=== PATIENT | female | born 1940 | race Caucasian/White ===

== ENCOUNTER → 2017-03-25 | Outpatient (REF) | payer MEDICARE | LOC: M LAB REF 12:30 | PROVIDERS: ATTEND Nurse Practitioner Adult Health | DX: R32 Unspecified urinary incontinence (principal) ==

== ENCOUNTER → 2017-04-21 | Outpatient (REF) | payer MEDICARE | LOC: M LAB REF 16:25 | PROVIDERS: ATTEND Nurse Practitioner Adult Health | DX: R35.0 Frequency of micturition (principal) ==

== ENCOUNTER → 2017-06-05 | Outpatient (REF) | payer MEDICARE | LOC: M LAB REF 16:08 | PROVIDERS: ATTEND Nurse Practitioner Adult Health | DX: M25.569 Pain in unspecified knee (principal) ==

== ENCOUNTER → 2020-01-30 | Outpatient (CLI) | payer MEDICARE ==
[2020-02-02 00:10] LABS: Lyme Disease IgG/IgM Antibodie <0.91 ISR (0.00-0.90); Lyme Disease IgM Ab Quantitati <0.80 index (0.00-0.79)
== END ==
LOC: M WUC 15:14
PROVIDERS: ATTEND Nurse Practitioner
DX: S40.861A Insect bite (nonvenomous) of right upper arm, initial encounter (principal); W57.XXXA Bitten or stung by nonvenomous insect and other nonvenomous arthropods, initial encounter; Y92.89 Other specified places as the place of occurrence of the external cause

== ENCOUNTER 2020-10-15 23:21 | Observation (INO) | payer MEDICARE ==
[~2020-10-15] VITALS: Ht 149.9 cm; Wt 57.7 kg
[2020-10-15] MEDS ORDERED: AMLO1TAB24 (23:49)
[2020-10-15] MEDS ORDERED: SERT25TA21 (23:49)
[2020-10-15] MEDS ORDERED: BIMA01SOL (23:49)
--- NOTE | 2020-10-16 00:10 | REPVR ---
PROCEDURE INFORMATION: Exam: CT Head Without Contrast Exam date and time: 10/15/2020 11:33 PM Age: 80 years old Clinical indication: CVA TECHNIQUE: Imaging protocol: Computed tomography of the head without contrast. Radiation optimization: All CT scans at this facility use at least one of these dose optimization techniques: automated exposure control; mA and/or kV adjustment per patient size (includes targeted exams where dose is matched to clinical indication); or iterative reconstruction. COMPARISON: No relevant prior studies available. FINDINGS: Brain: There is no CT evidence for an acute large vessel territorial infarct. No acute intracranial hemorrhage is seen. There are non-specific foci of low attenuation in the periventricular and subcortical white matter, which are likely the sequela of chronic small vessel ischemic injury. There are chronic lacunar infarcts involving the head of the right caudate nucleus and body of the left caudate nucleus. No mass effect, midline shift, or herniation is noted. Cerebral ventricles: The ventricles are mildly dilated in proportion to the sulci, which is compatible with mild generalized cerebral volume loss. Incidental note is made of a normal variant cavum septum pellucidum and cavum vergae, which is persistence of the embryological fluid-filled space between the leaflets of the septum pellucidum. Bones/joints: The skull is intact. No suspicious osteolytic or osteoblastic lesion. Paranasal sinuses: The imaged portions of the sinuses are well-aerated. No air-fluid levels are noted in the sinuses. Mastoid air cells: Clear. Vasculature: There are atherosclerotic calcifications of the intracranial portion of the left vertebral artery and both internal carotid arteries. Soft tissues: Unremarkable. No soft tissue fluid collection. IMPRESSION: 1. No acute intracranial abnormality. 2. Chronic lacunar infarcts involving the head of the right caudate nucleus and body of the left caudate nucleus. 3. Mild cerebral atrophy and chronic microangiopathic changes. Electronically signed by: Ambrosio Dhillon On 10/16/2020 00:10:16 AM
[2020-10-16] MEDS ORDERED: BIMA01SOL OU (00:20)
[2020-10-16] MEDS ORDERED: RA B1TAB7 PO (00:20)
[2020-10-16] MEDS ORDERED: VITA200010 PO (00:20)
[2020-10-16] MEDS ORDERED: AMLO1TAB24 PO (00:20)
[2020-10-16] MEDS ORDERED: CALC1TAB30 PO (00:20)
[2020-10-16 00:24] LABS: BASO # 0.1 10^3/uL (0.0-0.2); BASO % 0.9 % (0.0-1.0); EOS # 0.6 10^3/uL (0.0-0.5); EOS % 6.6 % (0.0-3.0); HEMATOCRIT 35.6 % (36.0-47.0); HEMOGLOBIN 11.1 g/dl (12.0-15.5); LYMPH # 2.4 10^3/uL (1.5-5.0); LYMPH % 28.3 % (24.0-44.0); MEAN CORPUSCULAR HEMOGLOBIN 29.2 pg (27.0-33.0); MEAN CORPUSCULAR HGB CONC 31.2 g/dl (32.0-36.5); MEAN CORPUSCULAR VOLUME 93.7 fl (80.0-96.0); MONO # 0.7 10^3/uL (0.0-0.8); MONO % 8.6 % (0.0-5.0); NEUTROPHILS # 4.7 10^3/uL (1.5-8.5); NEUTROPHILS % 55.4 % (36.0-66.0); PLATELET COUNT, AUTOMATED 334 10^3/uL (150-450); WHITE BLOOD COUNT 8.5 10^3/uL (4.0-10.0)
[2020-10-16 00:33] LABS: INR 0.92; PROTHROMBIN TIME 12.6 SECONDS (12.5-14.3)
[2020-10-16 00:34] LABS: PARTIAL THROMBOPLASTIN TIME 29.2 SECONDS (24.2-38.5)
[2020-10-16 00:46] LABS: BLOOD UREA NITROGEN 26 MG/DL (7-18); CALCIUM LEVEL 9.3 MG/DL (8.8-10.2); CARBON DIOXIDE LEVEL 29 MEQ/L (21-32); CHLORIDE LEVEL 108 MEQ/L (98-107); CK-MB VALUE MASS 2.3 NG/ML (<3.6); CPK CREATINE PHOSPHOKINASE 61 U/L (26-192); GLOMERULAR FILTRATION RATE 45.9 (>32); GLUCOSE, FASTING 130 MG/DL (70-100); MB/CK RELATIVE INDEX 3.77 (< OR =4); POTASSIUM SERUM 4.2 MEQ/L (3.5-5.1); SODIUM LEVEL 141 MEQ/L (136-145); TROPONIN I < 0.02 NG/ML (< 0.10)
[2020-10-16 01:04] LABS: RSV AMPLIFICATION NEGATIVE (NEGATIVE)
--- NOTE | 2020-10-16 01:38 | REPVR ---
PROCEDURE INFORMATION: Exam: XR Chest, 1 View Exam date and time: 10/15/2020 11:50 PM Age: 80 years old Clinical indication: CVA TECHNIQUE: Imaging protocol: XR of the chest Views: 1 view. COMPARISON: No relevant prior studies available. FINDINGS: Lungs: Unremarkable. No consolidation. No pulmonary edema. Pleural space: Unremarkable. No pleural effusion or pneumothorax is identified. Heart/Mediastinum: Unremarkable. No cardiomegaly. Vasculature: There are atherosclerotic calcifications of the aortic arch. Bones/joints: There are endplate spurs in the thoracic spine. There is a mild levoscoliosis of the lumbar spine. IMPRESSION: No acute findings. Electronically signed by: Ambrosio Dhillon On 10/16/2020 01:38:49 AM
[2020-10-16] MEDS ORDERED: LABETALOL 100MG/20ML VIAL IV ONE (04:00)
--- NOTE | 2020-10-16 04:21 | HPEPDOC ---
General Date of Admission Date of Service: Oct 16, 2020 Primary Care Physician: RIK CARLOS DO Attending Physician: Harry Jackson MD Chief Complaint The patient is a 80-year-old female admitted with a reason for visit of "my speech was very slurred." Source: Patient, RN/MD Exam Limitations: No limitations History of Present Illness Ms. Armando was at home with her family having supper when suddenly she had difficulty speaking and couldn't lift her left arm. The symptoms lasted only 2 or 3 minutes and initially the patient and her family were sure to do. They waited a little while to bring her in for evaluation, but eventually decided evaluation in the hospital even though her symptoms had resolved. For now she is under a lot of stress right now. Her two evenings ago while under the care of Hospice. Home Medications Scheduled Amlodipine Besylate (Amlodipine Besylate) 5 Mg Tablet, 5 MG PO DAILY, (Reported) Bimatoprost (Lumigan) 0.01% 2.5ML Drops, 1 DROP OU QHS, (Reported) Calcium Carbonate/Vitamin D3 (Calcium 500-Vit D3 200 Caplet) 1 Each Tablet, 1 TAB PO DAILY, (Reported) Cholecalciferol (Vitamin D3) (Vitamin D3) 50 Mcg Tablet, 50 MCG PO DAILY, (Reported) Vitamin B Complex (B Complex) 1 Each Tablet, 1 TAB PO DAILY, (Reported) Allergies Coded Allergies: hydrochlorothiazide (Verified Allergy, Intermediate, 10/15/20) RASH shellfish derived (Verified Allergy, Intermediate, 10/15/20) RASH Uncoded Allergies: BONE FISH (Allergy, Intermediate, 10/15/20) RASH Past Medical History Medical History Hypertension Hyperlipidemia Osteoarthritis Macular degeneration of the right eye Surgical History Left total hip arthroplasty Right total knee arthroplasty Family History Her father at the age of 78 of prostate cancer Her mother at the age of 90 of Alzheimer's disease and osteoporosis Social History * Smoker: former Smoker (quit smoking in the 1970s) Alcohol: other (she reports she drinks 2-3 beers each night) Drugs: denies (but she does have CBD oil in her coffee most every day) She lives in a separate house on her son's property A-FIB/CHADSVASC A-FIB History Current/History of A-Fib/PAF?: No Current PO Anticoag Therapy: No Review of Systems Constitutional: Denies: Chills, Fever Eyes: Denies: Vision change ENT: Denies: Head Aches, Dysphagia Pulmonary: Denies: Dyspnea, Cough Cardiovascular: Denies: Chest Pain, Palpitations, Lt Headedness Gastrointestinal: Denies: Nausea, Vomiting, Abdominal Pain Genitourinary: Denies: Dysuria, Hematuria Hematologic: Denies: Bruising, Bleeding Excessively Endocrine: Denies: Heat Intolerance, Cold Intolerance Neurological: Reports: Weakness, Change in speech; Denies: Numbness, Confusion, Seizures Psych: Reports: Mood Normal, Depression; Denies: Memory Issues Physical Examination General Exam: Positive: Alert, Cooperative, No Acute Distress Eye Exam: Positive: PERRLA, Conjunctiva & lids normal; Negative: Sclera icteric ENT Exam: Positive: Atraumatic, Mucous membr. moist/pink, Pharynx Normal, Tongue Midline Neck Exam: Positive: Supple; Negative: Lymphadenopathy Chest Exam: Positive: Clear to auscultation, Normal air movement Heart Exam: Positive: Rate Normal, Regular Rhythm, Normal S1, Normal S2, Murmurs (there was a mid systolic murmur noted at the left lower sternal border); Negative: Rubs Telemetry: Positive: No significant arrhythmia Abdomen Exam: Positive: Normal bowel sounds, Soft; Negative: Tenderness, Hepatospenomegaly Extremity Exam: Positive: Normal pulses; Negative: Edema Skin Exam: Positive: Nl turgor and temperature; Negative: Rash Neuro Exam: Positive: Normal Speech, Strength at 5/5 X4 ext, Normal Tone, Sensation Intact, Cranial Nerves 3-12 NL Psych Exam: Positive: Mental status NL, Mood NL, Oriented x 3 Vital Signs Vital Signs Date Time Temp Pulse Resp B/P (MAP) Pulse Ox O2 Delivery O2 Flow Rate FiO2 10/16/20 03:45 65 18 179/84 (115) 96 Room Air 10/15/20 23:24 97.8 Laboratory Data Labs 24H Laboratory Tests 2 10/15/20 23:52: Bedside Glucose (Misc Panel) 127H 10/16/20 00:08: Immature Granulocyte % (Auto) 0.2, Neutrophils (%) (Auto) 55.4, Lymphocytes (%) (Auto) 28.3, Monocytes (%) (Auto) 8.6H, Eosinophils (%) (Auto) 6.6H, Basophils (%) (Auto) 0.9, Neutrophils # (Auto) 4.7, Lymphocytes # (Auto) 2.4, Monocytes # (Auto) 0.7, Eosinophils # (Auto) 0.6H, Basophils # (Auto) 0.1, Nucleated Red Blood Cells % (auto) 0.0, Prothrombin Time 12.6, Prothromb Time International Ratio 0.92, Activated Partial Thromboplast Time 29.2, Anion Gap 4L, Glomerular Filtration Rate 45.9, Calcium Level 9.3, Total Creatine Kinase 61, Creatine Kinase MB 2.3, Creatine Kinase MB Relative Index 3.77, Troponin I < 0.02 10/16/20 00:17: Coronavirus (COVID-19)(PCR) NEGATIVE, Influenza Type A (RT-PCR) NEGATIVE, Influenza Type B (RT-PCR) NEGATIVE, Respiratory Syncytial Virus (PCR) NEGATIVE CBC/BMP Laboratory Tests 10/16/20 00:08 Problems (1) TIA (transient ischemic attack) Status: Resolved Problem Specific Plan: Monitor Clinically Problem Text: Her symptoms had entirely resolved before she came to the hospital. Her CT scan does show chronic lacunar infarcts. In this setting, I do think she merits further evaluation in the acute care setting. Will monitor on telemetry, do neuro checks, get an echo (especially because she has a possibly new murmur), and get carotid Dopplers (in light of the lacunar infarcts). Did start her on Plavix, and atorvastatin. (2) Hypertension Status: Chronic Problem Specific Plan: Monitor Clinically Problem Text: Her blood pressure is running high while in the emergency department. The systolic blood pressure was fairly consistently in the 180s. This might represent compensatory hypertension if there is a small area of her brain that is ischemic and needs additional pressure so as not to worsen. However, I do not want to leave her blood pressure to uncontrolled either. I gave her a one-time dose of labetalol and will monitor. I did continue her routine medications. (3) Hyperlipidemia Problem Text: I started her on atorvastatin based on her presentation with a TIA. I ordered labs for the morning. Plan / VTE VTE Prophylaxis Ordered?: Yes Plan Advanced Directives: MOLST Form is available (I filled a most form out with her in the emergency department today.), Health Care Proxy (HCP) Harry Jackson MD Oct 16, 2020 04:21
[2020-10-16] MEDS: ATORVASTATIN 20 MG TAB PO SCH ×2 (04:30→20:45)
[2020-10-16 04:58] LABS: CHOLESTEROL LEVEL 238 MG/DL (<200); CHOLESTEROL RISK RATIO 3.838 (<5); HDL CHOLESTEROL 62 MG/DL (>40); LDL CHOLESTEROL 143 MG/DL (<100); NON-HDL-C 176 MG/DL; TRIGLYCERIDES LEVEL 165 MG/DL (<150)
[2020-10-16 05:14] VITALS: BP 157/70
--- NOTE | 2020-10-16 05:23 | REPVR ---
PROCEDURE INFORMATION: Exam: US Duplex Bilateral Extracranial Arteries Exam date and time: 10/16/2020 5:01 AM Age: 80 years old Clinical indication: Speech disturbance; Slurred speech; Additional info: TIA, lacunar infarcts TECHNIQUE: Imaging protocol: Real-time Duplex ultrasound scan of the bilateral carotid and vertebral arteries combining quinonez scale, color Doppler and spectral waveform analysis. Bilateral exam. COMPARISON: CT Head without contrast 10/15/2020 11:37 PM FINDINGS: Right common carotid artery: Mild intimal thickening with mild mural soft and hard plaques seen in the right CCA extending to the carotid bulb and proximal ICA. Normal waveform seen in the right CCA with peak systolic velocities of 80.1 centimeter/second, 65.2 centimeter/second and 52.8 centimeter/second in the proximal, mid and distal CCA respectively. Right internal carotid artery: Normal waveform seen in the right carotid bulb with peak systolic velocity of 56.5 centimeter/second. Normal waveform seen in the right ICA with peak systolic velocities of 71.1 centimeter/second, 59.4 centimeter/second, and 67.8 centimeter/second in the proximal, mid and distal ICA respectively. Right ICA/CCA ratio: Right ICA to CCA ratio is within normal limits at 0.89. Right external carotid artery: Normal waveform with peak systolic velocity of 53.5 centimeter/second seen in the proximal right ECA. Right vertebral artery: Antegrade flow seen in the right vertebral artery with peak systolic velocity of 52.8 centimeter/second. Left common carotid artery: Diffuse intimal thickening seen throughout the left CCA with peak systolic velocities 55.3 centimeter/second, 60.3 centimeter/second and 59.6 centimeter/second in the proximal, mid and distal CCA respectively. Left internal carotid artery: Bulky calcified plaques seen in the left carotid bulb extending to the ICA. Peak systolic velocity of 67.7 centimeter/second seen in the left carotid bulb. There is turbulent flow with increased velocities in the proximal left ICA with peak systolic velocities 755 centimeter/second and end-diastolic velocity of 423 centimeter/second. Peak systolic velocity of 38.2 centimeter/second seen in the mid left ICA. Peak systolic velocity of 38.5 centimeter/second seen in the distal left ICA. Left ICA/CCA ratio: Left ICA to CCA ratio is significantly increased at 12.52. Left external carotid artery: Peak systolic velocity of 83.8 centimeter/second seen in the proximal left ECA. Left vertebral artery: Antegrade flow seen in the left vertebral artery with peak systolic velocity of 51.4 centimeter/second. IMPRESSION: Bulky calcified plaques in the left carotid bulb extending to the proximal left ICA resulting in more than 70% (but less than near occlusion) stenosis. REFERENCES: SRU CRITERIA. The degree of internal carotid artery stenosis is based on criteria defined by the Society of Radiologists in Ultrasound (SRU). Normal is no stenosis. Mild is less than 50% stenosis. Moderate is 50-69% stenosis. Severe is greater than 69% stenosis to near occlusion. Near occlusion is a markedly narrowed lumen. Total occlusion is no detectable patent lumen. Electronically signed by: Piero Sanchez On 10/16/2020 05:22:55 AM
--- NOTE | 2020-10-16 07:51 | ECGEPIP ---
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
[2020-10-16] MEDS: CALCIUM/VITAMIN D 500 MG TAB PO SCH (09:00)
[2020-10-16] MEDS: CLOPIDOGREL 75 MG TAB PO SCH (09:26)
[2020-10-16] MEDS: amLODIPine 5 MG TAB PO SCH (09:28)
[2020-10-16 09:31] VITALS: BP 157/70
[2020-10-16] MEDS ORDERED: FLUBLOK(EGG FREE)(QUAD)INFLUENZA VACC 0.5ML SYRINGE 18YRS & OLDER IM ONE (10:00)
[2020-10-16 14:00] VITALS: BP 155/69
--- NOTE | 2020-10-16 15:57 | REPVR ---
PROCEDURE INFORMATION: Exam: MR Angiogram Head Without Contrast, Arteries Exam date and time: 10/16/2020 3:38 PM Age: 80 years old Clinical indication: Cognitive deficit; Altered mental status; Patient HX: HX CVA , AMS that has since subsided; Additional info: TIA, HX of CVA TECHNIQUE: Imaging protocol: MR angiogram head without contrast. Exam focused on the arteries. 3D rendering (Not supervised by radiologist): MIP and/or 3D reconstructed images were created by the technologist. COMPARISON: CT Head without contrast 10/15/2020 11:37 PM FINDINGS: ANTERIOR CIRCULATION: Right internal carotid artery: Intracranial segment is patent with no significant stenosis. No aneurysm. Right middle cerebral artery: There is focal stenosis in the mid to distal right M1 segment measuring approximately 3.5 mm in length. Series 203, image 1 frames 9 -12. Right anterior cerebral artery: No occlusion or significant stenosis. No aneurysm. Left internal carotid artery: Intracranial segment is patent with no significant stenosis. No aneurysm. Left middle cerebral artery: No occlusion or significant stenosis. No aneurysm. Left anterior cerebral artery: Very little flow is seen in the left A1 segment which may be due to congenital hypoplasia versus stenosis. POSTERIOR CIRCULATION: Right vertebral artery: No occlusion or significant stenosis. No aneurysm. Left vertebral artery: No occlusion or significant stenosis. No aneurysm. Basilar artery: No occlusion or significant stenosis. No aneurysm. Right posterior cerebral artery: There may be focal areas of stenosis at the junction of the right P2 and P3 segments as well as the right P3 and P4 segments of the right posterior cerebral artery. Left posterior cerebral artery: No occlusion or significant stenosis. No aneurysm. IMPRESSION: 1. No definite acute occlusion although there is stenosis versus hypoplasia of the left A1 segment. 2. Focal stenoses are seen in the right posterior cerebral artery as above. Electronically signed by: Lazara Grider On 10/16/2020 15:56:58 PM
--- NOTE | 2020-10-16 16:08 | REPVR ---
PROCEDURE INFORMATION: Exam: MR Head Without Contrast Exam date and time: 10/16/2020 3:38 PM Age: 80 years old Clinical indication: Altered mental status/memory loss; Confusion or disorientation; Patient HX: HX CVA , AMS that has since subsided; Additional info: TIA, HX of CVA TECHNIQUE: Imaging protocol: MR of the head without contrast. COMPARISON: CT Head without contrast 10/15/2020 11:37 PM FINDINGS: Brain: There are 2 foci of restricted diffusion, the 1st is in the body of the right caudate series 304, image 1 frame 22 and the 2nd is in the lateral body of the caudate/centrum semiovale series 304, image 1 frame 23. Increased signal intensity of the deep and subcortical white matter on the FLAIR and T2 weighted sequences is most consistent with microangiopathy with multiple prior lacunar infarctions in the basal ganglia largest in the thalamus on the right and in the body of the left caudate. No acute intracranial hemorrhage or prior microhemorrhages. There is a normal variant cavum septum pellucidum et vergae. Cerebral ventricles: The ventricles appear mildly enlarged, but not out of proportion to the degree of parenchymal volume loss. Bones/joints: Unremarkable. Paranasal sinuses: No acute sinusitis. Mastoid air cells: No mastoid effusion. Orbits: Unremarkable. Soft tissues: Unremarkable. IMPRESSION: There are 2 foci of acute infarction within the right caudate nucleus. Electronically signed by: Lazara Grider On 10/16/2020 16:08:08 PM
--- NOTE | 2020-10-16 17:18 | IPNPDOC ---
Date Seen The patient was seen on 10/16/20. Progress Note SUBJECTIVE: No focal deficits on exam this AM. MRI/MRA brain done today- 2 foci of acute infarction noted within right caudate nucleus. Started on ASA in addition to existing therapy. PT/OT, echo to be done t OBJECTIVE: VITAL SIGNS: Please see below PHYSICAL EXAMINATION: CONSTITUTIONAL: No acute distress, resting comfortably, AAO x 3 EYES: PERRLA, EOM intact HENT, MOUTH: Normocephalic, atraumatic, moist mucous membranes NECK: SUPPLE, no JVD, no lymphadenopathy, no carotid bruit CV: Regular rate and rhythm, S1S2 normal, no murmurs/rubs/gallops RESPIRATORY: Clear to auscultation bilaterally, no rales/rhonchi/wheezes GI: BS positive in 4 quadrants, soft, nontender, nondistended, no rebound or guarding, no organomegaly : Deferred MUSCULOSKELETAL: Normal ROM. No cyanosis, clubbing, swelling, joint deformity, extremity edema INTEGUMENTARY: Intact, no rashes, no lesions, no erythema NEUROLOGIC: Cranial Nerves II-XII are intact, no focal deficits PSYCHIATRIC: Mood and affect are normal CURRENT MEDICATIONS: Please see below LABORATORY DATA: Please see below IMAGING: MRI brain: There are 2 foci of acute infarction within the right caudate nucleus. MRA brain: 1. No definite acute occlusion although there is stenosis versus hypoplasia of the left A1 segment. 2. Focal stenoses are seen in the right posterior cerebral artery as described in report Carotid US: Bulky calcified plaques in the left carotid bulb extending to the proximal left ICA resulting in more than 70% (but less than near occlusion) stenosis. ASSESSMENT:80 y/o F with PMH of HTN, HLD admitted for treatment/workup of acute CVA PLAN: #CVA, acute -MRI/MRA above -Started on ASA in addition to Plavix, statin -Discussed with Dr. Nogueira, on-call neurologist -Will need o/p referral to vascular for carotid stenosis, vasculopathy. -PT/OT, echo pending #Hypertensive emergency- resolved -Existing HTN which is chronic -BP gilma rcontrolled today -C/w CCB, allowing permissive HTN until 10/17/20 #HLD -C/w statin DISPOSITION: C/w w/u above. Plan is discharge home when medically cleared with f/u with PCP and vascular surgery. VS, I&O, 24H, Fishbone Vital Signs/I&O Vital Signs Date Time Temp Pulse Resp B/P (MAP) Pulse Ox O2 Delivery O2 Flow Rate FiO2 10/16/20 14:00 99.8 76 16 155/69 (97) 98 Room Air I&O- Last 24 Hours up to 6 AM 10/16/20 06:00 Intake Total 0 ml Output Total 0 ml Balance 0 ml Laboratory Data 24H LABS Laboratory Tests 2 10/15/20 23:52: Bedside Glucose (Misc Panel) 127H 10/16/20 00:08: Immature Granulocyte % (Auto) 0.2, Neutrophils (%) (Auto) 55.4, Lymphocytes (%) (Auto) 28.3, Monocytes (%) (Auto) 8.6H, Eosinophils (%) (Auto) 6.6H, Basophils (%) (Auto) 0.9, Neutrophils # (Auto) 4.7, Lymphocytes # (Auto) 2.4, Monocytes # (Auto) 0.7, Eosinophils # (Auto) 0.6H, Basophils # (Auto) 0.1, Nucleated Red Blood Cells % (auto) 0.0, Prothrombin Time 12.6, Prothromb Time International Ratio 0.92, Activated Partial Thromboplast Time 29.2, Anion Gap 4L, Glomerular Filtration Rate 45.9, Calcium Level 9.3, Total Creatine Kinase 61, Creatine Kinase MB 2.3, Creatine Kinase MB Relative Index 3.77, Troponin I < 0.02, Triglycerides Level 165H, Total Cholesterol 238H, LDL Cholesterol 143H, Non-HDL Cholesterol (LDL + VLDL) 176, Total HDL Cholesterol 62, Cholesterol/HDL Ratio 3.838 10/16/20 00:17: Coronavirus (COVID-19)(PCR) NEGATIVE, Influenza Type A (RT-PCR) NEGATIVE, Influenza Type B (RT-PCR) NEGATIVE, Respiratory Syncytial Virus (PCR) NEGATIVE CBC/BMP Laboratory Tests 10/16/20 00:08 Current Medications Current Medications Medications (Trade) Dose Ordered Sig/Mack Route PRN Reason Start Time Stop Time Status Last Admin Dose Admin Amlodipine Besylate (Norvasc) 5 mg DAILY PO 10/16/20 09:00 10/16/20 09:28 Atorvastatin Calcium (Lipitor) 20 mg QHS PO 10/15/20 21:00 10/16/20 04:30 Calcium/Vitamin D (Oscal D) 1 mg DAILY PO 10/16/20 09:00 Clopidogrel Bisulfate (PLAVix) 75 mg DAILY PO 10/16/20 09:00 10/16/20 09:26 Home Med (Med Rec Complete!) ASDIRECTED XX 10/16/20 00:30 10/16/20 00:21 DC Allergies Coded Allergies: fish derived (Verified Allergy, Intermediate, BONE FISH- RASH, 10/16/20) hydrochlorothiazide (Verified Allergy, Intermediate, RASH, 10/16/20) shellfish derived (Verified Allergy, Intermediate, RASH, 10/16/20) Mary Patricio MD Oct 16, 2020 17:18
[2020-10-16 20:55] VITALS: BP 162/75
[2020-10-16] MEDS ORDERED: LATANOPROST 0.005% OPHTH SOLN 2.5 ML OU SCH (21:00)
[2020-10-16 22:00] VITALS: BP 140/80
[2020-10-17] MEDS ORDERED: BISACODYL 5 MG TAB PO PRN (01:00)
[2020-10-17] MEDS ORDERED: POLYVINYL ALCOHOL OPHTH SOLN 15 ML(LIQUITEARS) OU PRN (01:00)
[2020-10-17 06:00] VITALS: BP 168/86
[2020-10-17 06:34] LABS: HEMATOCRIT 39.3 % (36.0-47.0); HEMOGLOBIN 12.5 g/dl (12.0-15.5); MEAN CORPUSCULAR HGB CONC 31.8 g/dl (32.0-36.5); MEAN CORPUSCULAR VOLUME 94.5 fl (80.0-96.0); PLATELET COUNT, AUTOMATED 368 10^3/uL (150-450); RED BLOOD COUNT 4.16 10^6/uL (4.00-5.40); WHITE BLOOD COUNT 8.5 10^3/uL (4.0-10.0)
[2020-10-17 06:52] LABS: BLOOD UREA NITROGEN 19 MG/DL (7-18); CALCIUM LEVEL 9.4 MG/DL (8.8-10.2); CARBON DIOXIDE LEVEL 30 MEQ/L (21-32); CHLORIDE LEVEL 106 MEQ/L (98-107); CREATININE FOR GFR 0.82 MG/DL (0.55-1.30); GLOMERULAR FILTRATION RATE > 60.0 (>32); GLUCOSE, FASTING 107 MG/DL (70-100); SODIUM LEVEL 138 MEQ/L (136-145)
[2020-10-17] MEDS ORDERED: CLOP75TA2 PO (08:40)
[2020-10-17] MEDS ORDERED: ATOR1TAB21 PO (08:40)
[2020-10-17] MEDS ORDERED: ASPI81TAEC PO (08:40)
[2020-10-17] MEDS ORDERED: ASPIRIN 81 MG ENTERIC TAB PO SCH (09:00)
[2020-10-17 10:00] VITALS: BP 166/77
[2020-10-17] MEDS ORDERED: AMLO1TAB24 PO (10:48)
[2020-10-17 11:02] VITALS: BP 166/77
[2020-10-17] MEDS: CALCIUM/VITAMIN D 500 MG TAB PO SCH (11:02)
[2020-10-17] MEDS: amLODIPine 5 MG TAB PO SCH (11:02)
[2020-10-17] MEDS: CLOPIDOGREL 75 MG TAB PO SCH (11:02)
[2020-10-17 14:00] VITALS: BP 144/74
--- NOTE | 2020-10-17 19:10 | DS.PDOC ---
Discharge Summary General Date of Admission Oct 15, 2020 at 23:22 Date of Discharge 10/17/20 Attending Physician: Mary Patricio MD Discharge Summary HPI: Ms. Armando is an 80 y/o F with PMH Of HTN, HLD, OA who was at home with her family having supper when suddenly she had difficulty speaking and couldn't lift her left arm. The symptoms lasted only 2 or 3 minutes and initially the patient and her family wasn't sure what to do. They waited a little while to bring her in for evaluation, but eventually decided evaluation in the hospital even though her symptoms had resolved. For now she is under a lot of stress right now. In the ER, CT head neg. BP systolic >200 but later improved on its own. All labs were unremarkable. Her two evenings ago while under the care of Hospice so she has been under a large amount of stress at home. Patient was admitted for TIA vs. CVA w/u. HOSPITAL COURSE: Neurological checks remains wnl, no focal deficits were seen. MRI brain done next day showed 2 foci of acute infarction noted within right caudate nucleus. US carotid artery showed >70% stenosis of left ICA. Swallowing evaluation was wnl. PT/OT cleared patient to return home without need for continued services. Case was discussed with neurology instructor product inspection who recommended f/u with vascular surgery as o/p, continuation of ASA, plavix and statin on discharge. BP control is imperative and patient's amlodipine was increased to 10 mg PO daily. She will need close f/u with PCP to ensure her BP remains within goal range for her age. At time of discharge, patient denied chest pain, shortness of breath, lightheadedness, fevers, chills, headache, blurry vision. PMH: Hypertension Hyperlipidemia Osteoarthritis Macular degeneration of the right eye PSH: Left total hip arthroplasty Right total knee arthroplasty Family History: Her father at the age of 78 of prostate cancer Her mother at the age of 90 of Alzheimer's disease and osteoporosis Social History Smoker: former Smoker (quit smoking in the 1970s) Alcohol: other (she reports she drinks 2-3 beers each night) Drugs: denies (but she does have CBD oil in her coffee most every day) She lives in a separate house on her son's property ALLERGIES: Please see below. DISCHARGE MEDICATIONS: Please see below. PHYSICAL EXAMINATION: VS: Please see below CONSTITUTIONAL: No acute distress, resting comfortably, AAO x 3 EYES: PERRLA, EOM intact HENT, MOUTH: Normocephalic, atraumatic, moist mucous membranes NECK: SUPPLE, no JVD, no lymphadenopathy, no carotid bruit CV: Regular rate and rhythm, S1S2 normal, no murmurs/rubs/gallops RESPIRATORY: Clear to auscultation bilaterally, no rales/rhonchi/wheezes GI: BS positive in 4 quadrants, soft, nontender, nondistended, no rebound or guarding, no organomegaly : Deferred MUSCULOSKELETAL: Normal ROM. No cyanosis, clubbing, swelling, joint deformity, extremity edema INTEGUMENTARY: Intact, no rashes, no lesions, no erythema NEUROLOGIC: Cranial Nerves II-XII are intact, no focal deficits PSYCHIATRIC: Mood and affect are normal CURRENT MEDICATIONS: Please see below LABORATORY DATA: Please see below IMAGING: MRI brain: There are 2 foci of acute infarction within the right caudate nucleus. MRA brain: 1. No definite acute occlusion although there is stenosis versus hypoplasia of the left A1 segment. 2. Focal stenoses are seen in the right posterior cerebral artery as described in report Carotid US: Bulky calcified plaques in the left carotid bulb extending to the proximal left ICA resulting in more than 70% (but less than near occlusion) stenosis. ASSESSMENT:80 y/o F with PMH of HTN, HLD admitted for treatment/workup of acute CVA PLAN: #CVA of right caudate nucleus, acute -MRI/MRA above -lipid panel, elevated cholesterol -Started on ASA, Plavix, statin -Discussed with Dr. Nogueira, on-call neurologist -Will need o/p referral to vascular for carotid stenosis, vasculopathy. -PT/OT-cleared to return home -No swallowing issues -Echocardiogram is pending and may take several days to return. Would kindly ask if PCP could follow up and review with patient on next visit. Carotid stenosis ->70% stenosis of left ICA -No vascular surgery coverage in hospital this week -Patient will need o/p vascular surgery referral by PCP -C/w ASA, plavix and statin Hypertensive emergency- resolved -Existing HTN which is chronic -BP better rcontrolled today -C/w amlodipine 10 mg PO at discharge. Will need close f/u with PCP to ensure BP is within goal range for age group. -Discussed importance of low salt diet HLD -C/w statin -Low fat diet DISPOSITION: Discharged home to f/u with PCP and will need o/p vascular surgery referral. TIME SPENT ON DISCHARGE: Greater than 30 minutes. Vital Signs/I&Os Vital Signs Date Time Temp Pulse Resp B/P (MAP) Pulse Ox O2 Delivery O2 Flow Rate FiO2 10/17/20 14:00 98.6 62 17 144/74 (97) 97 Room Air I&O- Last 24 Hours up to 6 AM 10/17/20 06:00 Intake Total 1170 ml Output Total 1500 ml Balance -330 ml Laboratory Data Labs 24H Laboratory Tests 2 10/17/20 05:51: Nucleated Red Blood Cells % (auto) 0.0, Anion Gap 2L, Glomerular Filtration Rate > 60.0, Calcium Level 9.4 CBC/BMP Laboratory Tests 10/17/20 05:51 Discharge Medications Scheduled Amlodipine Besylate (Amlodipine Besylate) 5 Mg Tablet, 10 MG PO DAILY Aspirin (Aspirin EC) 81 Mg Tablet.dr, 81 MG PO DAILY Atorvastatin Calcium (Atorvastatin Calcium) 20 Mg Tablet, 20 MG PO QHS Bimatoprost (Lumigan) 0.01% 2.5ML Drops, 1 DROP OU QHS, (Reported) Calcium Carbonate/Vitamin D3 (Calcium 500-Vit D3 200 Caplet) 1 Each Tablet, 1 TAB PO DAILY, (Reported) Cholecalciferol (Vitamin D3) (Vitamin D3) 50 Mcg Tablet, 50 MCG PO DAILY, (Reported) Clopidogrel Bisulfate (Clopidogrel) 75 Mg Tablet, 75 MG PO DAILY Vitamin B Complex (B Complex) 1 Each Tablet, 1 TAB PO DAILY, (Reported) Allergies Coded Allergies: fish derived (Verified Allergy, Intermediate, BONE FISH- RASH, 10/16/20) hydrochlorothiazide (Verified Allergy, Intermediate, RASH, 10/16/20) shellfish derived (Verified Allergy, Intermediate, RASH, 10/16/20) Mary Patricio MD Oct 17, 2020 19:10
--- NOTE | 2020-10-18 16:22 | ECHO ---
DATE OF PROCEDURE: 10/17/2020 Age: 80 Gender: Female Height: 59 inches Weight: 127 pounds Body surface area: 1.53 m2 PATIENT LOCATION: Inpatient [facility] [place], Room 4210. REFERRING PHYSICIAN: Harry Jackson M.D. INDICATION: TIA cardiac source of embolic material ? MEASUREMENTS: 2D Measurements: RV 2.6 cm LV 4.0 cm Septum 1.1 cm Posterior wall 1.1 cm Aortic Root 3.2 cm LA 3.6 cm LVEF 65% Doppler Measurements: AV 1.27 m/s LVOT 0.77 m/s LVOT diameter 1.8 cm MV-E 62, A 103, E/A ratio 0.6 Early mitral deceleration time 299 msec E prime medial 7, A prime medial 8.7, E prime lateral 7.8 Average E/E prime ratio 8.4/PCWP 12.3 mmHg PV Not well seen IVC 1.8 cm COMMENTS: Normal sinus rhythm without intraventricular conduction disturbance. Frequent isolated PACs. Technically challenging study in light of the patients body habitus, but diagnostically useful information was still obtained. M-mode and two-dimensional echocardiography was performed with pulse, continuous wave, color flow, and tissue Doppler studies. Normal left ventricular size, wall thickness, and wall motion. Normal left atrial size with grade 1 LV diastolic dysfunction, but currently normal estimated mean left atrial pressure. Normal right heart chamber sizes and motion, but unable to accurately estimate her pulmonary arterial pressure. We attempted to estimate this by using her tricuspid regurgitation, but the signal was inadequate. Her pulmonary valve and pulmonary trunk could not be interrogated adequately to obtain a pulmonary artery acceleration time. Normal IVC size and collapse against an elevated central venous pressure. Normal aortic dimensions. Moderate aortic valvular sclerosis without stenosis or apparent insufficiency. Moderate degenerative changes of the mitral valvular apparatus without apparent inflow tract obstruction and only trace mitral insufficiency. Normal appearing tricuspid valve with trace insufficiency. We could not visualize any intracardiac mass or vegetation; but if the cardiac source of embolic material is seriously suspect, we would recommend a transesophageal echocardiogram. No pericardial effusion. MTDD
== END 2020-10-17 16:36 | disposition home or self-care (01) ==
LOC: M ED 23:21 → M ED INP 23:22 → M MSPAV 10-16 05:22
PROVIDERS: ADMIT Family Medicine; ATTEND Internal Medicine
DX: I16.0 Hypertensive urgency (principal); I10 Essential (primary) hypertension; E78.49 Other hyperlipidemia; Z87.891 Personal history of nicotine dependence; I65.22 Occlusion and stenosis of left carotid artery; Z79.82 Long term (current) use of aspirin; Z91.013 Allergy to seafood; Z88.8 Allergy status to other drugs, medicaments and biological substances; Z79.899 Other long term (current) drug therapy; Z79.01 Long term (current) use of anticoagulants
CPT/HCPCS: 36415; 70450; 70544; 70551; 71045; 80048; 80061; 82550; 82553; 84484; 85025; 85027; 85610; 85730; 86850; 86900; 86901; 87631; 93005; 93041; 93306; 93880; 94760; 96374; 97116; 97161; 97165; 99285; G0378

== ENCOUNTER → 2020-11-23 | Outpatient (CLI) | payer MEDICARE ==
[~2020-11-23] MED LIST: AMLO1TAB24; AMLO1TAB24 PO; ASPI81TAEC PO; ATOR1TAB21 PO; ATOR80TA59 PO; BIMA01SOL; BIMA01SOL OU; CALC1TAB30 PO; CLOP75TA2 PO; CO Q10CA PO; PRESCAP PO; RA B1TAB7 PO; SERT25TA21; TRAM50TA2 PO; VITA200010 PO
== END ==
LOC: M LABSMTC 10:33
PROVIDERS: ATTEND Anesthesiology
DX: Z01.812 Encounter for preprocedural laboratory examination (principal); Z20.822 Contact with and (suspected) exposure to COVID-19

== ENCOUNTER 2020-11-28 07:42 | Inpatient (IN) | payer MEDICARE ==
--- NOTE | 2020-11-14 08:41 | HPEPDOC ---
[facility] Medical History & Physical Date of Admission Nov 14, 2020 Date of Service: Nov 14, 2020 History and Physical Vascular surgery. Dr. Dickson HISTORY OF PRESENT ILLNESS: The patient is a 80-year-old female with recent TIA, slurred speech and weakness of the left hand lasting a few minutes, found to have severe stenosis left ICA, greater than 90%. Evaluated by Dr. Dickson 11/08/20 with plan to proceed with left carotid endarterectomy. PAST MEDICAL HISTORY: Hypertension Dyslipidemia Carotid artery stenosis CVA PAST SURGICAL HISTORY: Left hip replacement Right knee replacement SOCIAL HISTORY: Former smoker, quit 1989 FAMILY HISTORY: Hypertension, CAD ALLERGIES: Please see below. REVIEW OF SYSTEMS: Const: Denies chills, fever, weight gain and weight loss. Eyes: Denies new vision changes. ENMT: Denies hearing loss. Denies congestion. Denies dysphagia. CV: Reports high blood pressure and high cholesterol, but denies chest pain and palpitations. Resp: Denies cough, hemoptysis and shortness of breath. GI: Denies abdominal pain, constipation, diarrhea, nausea and vomiting. Musculo: Denies myalgia, pain and trouble walking. Skin: Denies skin cancer, rash and wound. Neuro: Reports transient ischemic attack but denies focal deficit, headache and seizures. Psych: Denies anxiety and depression. Endocrine: Denies diabetes, hyperthyroidism and hypothyroidism. Natanael/Lymph: Denies anemia and excessive bruising. HOME MEDICATIONS: Please see below. PHYSICAL EXAMINATION: Exam: Const: Appears medically stable. No signs of apparent distress present. Head/Face: Normal on inspection. ENMT: Tympanic membranes: intact. External nose WNL. Neck: Supple, no right carotid bruit present, positive left carotid bruit. Resp: No wheezing. Clear to auscultation bilaterally. CV: Rate is regular. Rhythm is regular. Abdomen: Bowel sounds are positive. Abdomen is soft, nontender, and nondistended. Lymph: No palpable or visible regional lymphadenopathy. Musculo:Gait steady, distal pulses 2+ DP/PT Skin:No rashes or lesions Neuro:Alert and oriented x3, moves all extremities equally, no focal neurologic deficits noted. Psych: Pleasant and cooperative LABORATORY DATA: See below. IMAGING: carotid duplex 10/16/20 right carotid system has fairly normal velocities with the internal carotid artery PSV/EDV of 71/31 and IC/CC ratio 0.89, which is less than 50% stenosis, and her vertebral on the right is antegrade. On the left, the patient has greater than 90% stenosis. There is a focal very tight area of stenosis in the proximal left ICA, PSV/EDV is 755/423 with an ICA/CC ratio of 12.32. The vertebral is antegrade. ASSESSMENT/PLAN: Severe left ICA stenosis with plan to proceed with left carotid endarterectomy as per Dr. Dickson 11/28/20. The procedure, risks, benefits and alternatives have been reviewed with the patient as per Dr. Dickson. Informed consent is obtained and placed in the chart. Transfusion consent is obtained and placed with the chart. The patient is on aspirin, she will not hold aspirin for the procedure. The patient is on Plavix 75 mg daily and will not hold Plavix for the procedure as per Dr. Dickson. Medical clearance is requested and will be placed with the chart. Cardiac clearance is requested and will be placed with the chart. NPO Admission labs to include CBC, BMP, INR, PTT, type and screen. IV fluids as per anesthesia. Ancef 2 g IV preoperatively. Continue statin. Home Medications Scheduled Amlodipine Besylate (Amlodipine Besylate) 5 Mg Tablet, 10 MG PO DAILY Aspirin (Aspirin EC) 81 Mg Tablet.dr 81 MG PO DAILY Atorvastatin Calcium (Atorvastatin Calcium) 20 Mg Tablet, 20 MG PO QHS Bimatoprost (Lumigan) 0.01% 2.5ML Drops, 1 DROP OU QHS Calcium Carbonate/Vitamin D3 (Calcium 500-Vit D3 200 Caplet) 1 Each Tablet, 1 TAB PO DAILY Cholecalciferol (Vitamin D3) (Vitamin D3) 50 Mcg Tablet, 50 MCG PO DAILY Clopidogrel Bisulfate (Clopidogrel) 75 Mg Tablet, 75 MG PO DAILY Vitamin B Complex (B Complex) 1 Each Tablet, 1 TAB PO DAILY Allergies Coded Allergies: fish derived (Verified Allergy, Intermediate, BONE FISH- RASH, 10/16/20) hydrochlorothiazide (Verified Allergy, Intermediate, RASH, 10/16/20) shellfish derived (Verified Allergy, Intermediate, RASH, 10/16/20) A-FIB/CHADSVASC A-FIB History Current/History of A-Fib/PAF?: No Rebeca Champion Nov 14, 2020 08:41
[2020-11-28] VITALS (10 sets, daily range): BP systolic 99–132; BP diastolic 46–57
[~2020-11-28] VITALS: Ht 149.9 cm; Wt 55.2 kg
[~2020-11-28 07:42] MED LIST changes: -CO Q10CA PO; +LR 1,000 ML IV ONE; -PRESCAP PO; -TRAM50TA2 PO; +ceFAZolin SOD 2 GM in IV 1 EA IV ONE
[2020-11-28] MEDS ORDERED: PRESCAP PO (11:33)
[2020-11-28] MEDS ORDERED: AMLO1TAB24 PO (11:33)
[2020-11-28] MEDS ORDERED: CO Q10CA PO (11:34)
[2020-11-28 11:41] LABS: HEMATOCRIT 37.9 % (36.0-47.0); HEMOGLOBIN 12.1 g/dl (12.0-15.5); MEAN CORPUSCULAR HEMOGLOBIN 29.8 pg (27.0-33.0); MEAN CORPUSCULAR HGB CONC 31.9 g/dl (32.0-36.5); MEAN CORPUSCULAR VOLUME 93.3 fl (80.0-96.0); PLATELET COUNT, AUTOMATED 360 10^3/uL (150-450); RED BLOOD COUNT 4.06 10^6/uL (4.00-5.40); WHITE BLOOD COUNT 9.1 10^3/uL (4.0-10.0)
[2020-11-28] MEDS ORDERED: LIDOCAINE 2% 100MG/5ML SDV (FOR ANES.) As Ordered ONE (11:43)
[2020-11-28] MEDS ORDERED: ETOMIDATE INJ 20MG/10ML VIAL As Ordered ONE (11:43)
[2020-11-28] MEDS ORDERED: fentaNYL 250 MCG/5 ML INJECTION (J3010) As Ordered ONE (11:43)
[2020-11-28] MEDS ORDERED: ONDANSETRON 4MG/2ML VIAL As Ordered ONE (11:43)
[2020-11-28] MEDS ORDERED: dexameTHASONE 4 MG/ML 1ML VIAL (J1100 PER 1MG) As Ordered ONE (11:43)
[2020-11-28] MEDS ORDERED: MIDAZOLAM INJ 2MG/2ML VIAL (J2250 PER 1MG) As Ordered ONE (11:43)
[2020-11-28] MEDS ORDERED: ROCURONIUM BROMIDE 50 MG/5 ML VIAL As Ordered ONE (11:43)
[2020-11-28] MEDS ORDERED: propofoL 200 MG/20 ML VIAL As Ordered ONE (11:43)
[2020-11-28] MEDS ORDERED: PHENYLEPHRINE 10MG/ML 1ML VIAL (J2370 PER 1) As Ordered ONE (11:43)
[2020-11-28 11:52] LABS: INR 0.98; PROTHROMBIN TIME 13.2 SECONDS (12.5-14.3)
[2020-11-28 11:53] LABS: PARTIAL THROMBOPLASTIN TIME 30.3 SECONDS (24.2-38.5)
[2020-11-28 12:05] LABS: BLOOD UREA NITROGEN 23 MG/DL (7-18); CALCIUM LEVEL 9.8 MG/DL (8.8-10.2); CARBON DIOXIDE LEVEL 30 MEQ/L (21-32); CHLORIDE LEVEL 105 MEQ/L (98-107); CREATININE FOR GFR 0.92 MG/DL (0.55-1.30); GLOMERULAR FILTRATION RATE > 60.0 (>32); GLUCOSE, FASTING 101 MG/DL (70-100); POTASSIUM SERUM 3.7 MEQ/L (3.5-5.1); SODIUM LEVEL 140 MEQ/L (136-145)
[2020-11-28] MEDS ORDERED: THROMBIN SOLN 5,000 UNITS VIAL As Ordered ONE (12:12)
[2020-11-28] MEDS ORDERED: LIDOCAINE W/EPINEPHRINE 1% 20ML VIAL As Ordered ONE (12:13)
[2020-11-28] MEDS ORDERED: HEPARIN SOD (PORCINE) 5000UNITS/ML 1ML VIAL/SYRINGE As Ordered ONE ×2 (12:13→14:10)
[2020-11-28] MEDS ORDERED: LIDOCAINE 1% SDV 30ML VIAL As Ordered ONE (12:13)
[2020-11-28] MEDS ORDERED: BUPIVACAINE/EPIN 0.25% 30 ML VIAL As Ordered ONE (13:25)
[2020-11-28] MEDS ORDERED: LABETALOL 100MG/20ML VIAL As Ordered ONE ×3 (13:37→15:53)
[2020-11-28] MEDS ORDERED: SUGAMMADEX SODIUM 500 MG/5 ML VIAL (BRIDION) As Ordered ONE (15:19)
--- NOTE | 2020-11-28 15:48 | ROOPDOC ---
[facility] Report Of Operation Report of Operation DATE OF PROCEDURE: 11/28/20 PREPROCEDURE DIAGNOSES: Left carotid stenosis POSTPROCEDURE DIAGNOSES: Same PROCEDURE: Left carotid endarterectomy with xenosure patch angioplasty SURGEON: Yaneth Dickson MD ANESTHESIA: Gen. anesthesia and local INDICATION FOR PROCEDURE: This is a very pleasant 80-year-old patient who had an episode of left upper extremity weakness that prompted a TIA stroke workup, and part of that workup with a carotid duplex. The patient did not have significant carotid stenosis on the right, which we would expect if it was the source of a TIA or stroke for left-sided weakness, but she did in fact have near occlusive disease in the left ICA. She was started on aspirin and Plavix and statin appropriately. We saw her in clinic and discussed that although we don't think this left ICA stenosis is the etiology of her TIA/stroke symptoms, we do believe that it is important to discuss a left carotid endarterectomy to prevent stroke on the left side. Risks benefits and alternatives to a left carotid endarterectomy were explained to the patient and her family. Everyone was thoroughly counseled and all questions were answered. Informed consent was obtained. REPORT OF OPERATION: The patient was brought to the operating room in stable condition. General anesthesia and antibiotics were administered without complication. Her left neck and chest were prepped and draped in a sterile fashion. A timeout was performed. An oblique incision was made over the anterior border of the sternocleidomastoid after anesthetizing with local anesthesia. This was carried down to the subcutaneous tissue in the platysma with Bovie cautery. We continued her dissection down to the jugular vein. The jugular vein in this patient is very medial. The carotid artery is not is medial. Therefore, we dissected along the lateral border of the jugular vein to mobilize it medially. We then dissected down to the carotid artery and circumferentially skeletonized the common carotid artery and a vessel loop was placed. We continued her dissection proximally and the hypoglossal nerve was identified and carefully preserved. We skeletonized the external carotid artery and hypoglossal artery and Vesseloops were placed. We then skeletonized the internal carotid artery and a vessel loop was placed distal to the palpable area of heavy plaque. 5000 units of heparin was given by anesthesia and allowed to circulate. We maintain the blood pressure during shunting at 140-160 mmHg. The Vesseloops were secured and an arteriotomy was made and carried onto the internal carotid artery beyond the plaque. We then placed an 8 [place] shunt into the internal carotid artery with good backbleeding in the vessel was resecured. The proximal end was placed in the common carotid artery and the Vesseloops with resecured. Flow was confirmed through the shunt with Doppler. We then endarterectomized the common carotid artery, external carotid artery origin, and internal carotid artery proximally. A good endpoint was noted. This intima and debris was removed. We irrigated with heparinized saline and all additional occlusive intima was removed. Once we were satisfied with the endarterectomy, we anastomosed a xenosure patch to the arteriotomy in a running fashion with 5-0 Prolene hemostatic suture. Before the final sutures are placed we irrigated with heparinized saline, removed the shunt from the internal carotid artery and allowed backbleeding with a good flush with heparinized saline, then remove the shunt from the common carotid artery and flushed this and then allowed backbleeding from the external carotid artery as well. We allow the blood pressure to drift down less than 140 mmHg after the shunt was removed. We irrigated with heparinized saline and placed her final sutures. We then restart flow to the external carotid artery and the superior thyroid artery and then the common carotid artery. After 10 beats of the hardware store flow to the internal carotid artery. We then irrigated and used Surgicel and gentle pressure to gain hemostasis. Following this, required to repair stitches for minimal bleeding at the patch, and following this there was good hemostasis. We irrigated again with saline. A ERIKA drain was placed and sutured at the skin with nylon. This was placed to bulb suction. The platysmal layer was approximated with a running 2-0 Vicryl suture. The deep dermal layer was approximated with interrupted 4-0 Vicryl suture. The skin was closed a running subcuticular 4-0 Monocryl suture. Mastisol and Steri-Strips were placed the length of the incision. A drain sponge was placed around the drain. The patient was allowed to awaken from anesthesia in the OR and prior to extubation she was able to open her eyes not her head appropriately to questions move all 4 extremities equally. She was then extubated and taken to recovery in stable condition. She had a few episodes of hypertension postextubation which were treated with IV medication. With this, we noted a little increased drain output each time which is not uncommon since the patient was maintained on full Plavix and aspirin. We will continue to monitor her ERIKA drain output. She has no hematoma on the left neck. She was taken to recovery in stable condition. In recovery, she was able to say her name and speak clearly, answer questions appropriately, vision and speech intact, moves all extremities equally with 5 out of 5 motor and sensory in the upper and lower extremities, tongue is midline. So far, neuro exam is at baseline. ESTIMATED BLOOD LOSS: Approximately 75 mL. COMPLICATIONS: None PLAN: The patient will be admitted to the hospitalist service, ICU, overnight with plans for discharge in the morning if stable. We will have a goal systolic blood pressure of 90 mmHg to 140 mmHg. We will have a goal heart rate of 60-80. We will monitor the ERIKA drain output in the left neck for possible hematoma. Patient will be maintained on aspirin and Plavix. We will keep the head of bed elevated, okay for ice for comfort. Analgesia as needed. We will resume her home diet. Tomorrow, we will plan to remove the ERIKA drain in the arterial line. If she is able to eat, ambulate, urinate, blood pressure stable, ERIKA drain output minimal, she will be able to go home tomorrow. YANETH DICKSON MD Nov 28, 2020 15:48
[2020-11-28] MEDS ORDERED: PERCOCET 5MG/325MG TAB PO PRN ×2 (16:00)
[2020-11-28] MEDS ORDERED: LABETALOL 100MG/20ML VIAL IV PRN ×2 (16:00→16:30)
[2020-11-28] MEDS ORDERED: CHLORASEPTIC SPRAY MT PRN (16:00)
[2020-11-28] MEDS ORDERED: ONDANSETRON 4MG/2ML VIAL IV PRN ×2 (16:00→16:30)
[2020-11-28] MEDS: hydrALAZINE 20MG/ML 1ML VIAL (J0360 PER 20MG) IV PRN (16:15)
[2020-11-28] MEDS ORDERED: POLYVINYL ALCOHOL OPHTH SOLN 15 ML(LIQUITEARS) OU PRN (16:15)
[2020-11-28] MEDS ORDERED: fentaNYL 100 MCG/2 ML INJECTION (J3010) IV PRN (16:30)
[2020-11-28] MEDS ORDERED: METOCLOPRAMIDE INJ 10MG/2ML VIAL (J2765 PER 1) IV PRN (16:30)
[2020-11-28] MEDS ORDERED: LR 1,000 ML IV SCH (16:30)
[2020-11-28] MEDS ORDERED: MEPERIDINE INJ 25 MG/ML VIAL (J2175) IV PRN (16:30)
[2020-11-28] MEDS ORDERED: oxyCODONE 5MG TAB PO PRN (16:30)
--- NOTE | 2020-11-28 17:18 | HPEPDOC ---
[facility] Medical History & Physical Date of Admission Nov 28, 2020 Date of Service: Nov 28, 2020 Attending Physician: Mary Patricio MD History and Physical HPI: Patient is an 80 y/o F with PMH Of HTN, HLD, OA, left carotid stenosis, recent right caudate nucleus CVA who was was had elective left side carotid endarterectomy performed on 11/28/[address] Dickson. Ms. Banerjee had a recent right caudate nucleus CVA and during that admission, had carotid US showing >70% stenosis of left carotid artery. She was set up to follow up with vascular surgery, Dr. Dickson, as o/p after discharge. Intraoperatively there were no complications. Minimal blood loss of 75 mL was recorded. Post-operatively she had two isolated episodes of hypertension for which she was given hydralazine and labetalol IV. Goal blood pressure post-op is 90-140 mmHg systolic with HR 60-80 bpm. Medicine team was consulted to admit patient as primary post-operatively. Post-op patient only complained of some mild left neck pressure. She denied chest pain, shortness of breath, n/v, blurry vision, headache, arm numbnes s/tingling, LH, dizziness, increased weakness. BP appeared within goal on my evaluation. ERIKA drain had sanguinous blood, total of 50 mL. According to nursing she has had approx 100 mL in addition to 75 mL of blood loss thus far. Per vascular request, ASA and statin, along with other home meds were resumed. Patient was admitted to ICU for close monitoring post-operatively with vascular surgery consulted to follow. PMH: Right caudate nucleus CVA Left carotid stenosis Hypertension Hyperlipidemia Osteoarthritis Macular degeneration of the right eye PSH: Left carotid endarterectomy 11/28/20 Left total hip arthroplasty Right total knee arthroplasty Family History: Her father at the age of 78 of prostate cancer Her mother at the age of 90 of Alzheimer's disease and osteoporosis Social History Smoker: former Smoker (quit smoking in the 1970s) Alcohol: other (she reports she drinks 2-3 beers each night) Drugs: denies (but she does have CBD oil in her coffee most every day) She lives in a separate house on her son's property ALLERGIES: Please see below. DISCHARGE MEDICATIONS: Please see below. PHYSICAL EXAMINATION: VS: HR 54 sinus rhythm, BP 103/41, RR 18, 100% on 3 L NC CONSTITUTIONAL: No acute distress, resting comfortably, AAO x 3 EYES: PERRLA, EOM intact HENT, MOUTH: Normocephalic, atraumatic, moist mucous membranes NECK: SUPPLE, no JVD, no lymphadenopathy, no carotid bruit, ERIKA drain in left neck with 50 mL sanguinous fluid CV: Regular rate and rhythm, S1S2 normal, no murmurs/rubs/gallops RESPIRATORY: Clear to auscultation bilaterally, no rales/rhonchi/wheezes GI: BS positive in 4 quadrants, soft, nontender, nondistended, no rebound or guarding, no organomegaly : Deferred MUSCULOSKELETAL: Normal ROM. No cyanosis, clubbing, swelling, joint deformity, extremity edema INTEGUMENTARY: Intact, no rashes, no lesions, no erythema NEUROLOGIC: Cranial Nerves II-XII are intact, no focal deficits PSYCHIATRIC: Mood and affect are normal CURRENT MEDICATIONS: Please see below LABORATORY DATA: Please see below IMAGING: Carotid US 10/16/20: Bulky calcified plaques in the left carotid bulb extending to the proximal left ICA resulting in more than 70% (but less than near occlusion) stenosis. ASSESSMENT: 80 y/o F with PMH Of HTN, HLD, OA, left carotid stenosis, recent right caudate nucleus CVA who was was had elective left side carotid end arterectomy performed on 11/28/[address] Dickson, admitted to ICU for close monitoring post-operatively with vascular surgery consulted to follow. PLAN: #Left side carotid stenosis s/p left carotid endarterectomy POD 0 -Est blood loss thus far 175 mL, ERIKA drain in place -Per vascular surgery, monitoring BP closely (goal BP 90-140 mmHg systolic with HR 60-80 bpm) and s/s of incr bleeding, left neck swelling, tracheal deviation -Resuming ASA, statin medication tonight -Plavix to resume in the AM -Type and screened -Vascular surgery consulted, Dr. Dickson #CVA of right caudate nucleus, acute -Resolved left upper ext numbness, weakness since discharge from hospital in 10/2020 -Recent lipid panel showed elevated cholesterol only -Resume ASA, Plavix, statin as discussed above #HTN -Given labetalol and hydralazine post-op -Goal BP 90-140 mmHg systolic -C/w home amlodipine PO BID, hydralazine PRN -Low salt diet #HLD -C/w statin #DVT px -teds, SCDs. Incr bleeding risk so avoiding other AC at this time. DISPOSITION: Admitted to ICU for close monitoring. Vascular surgery following. Plan is home at discharge when medically improved. Vital Signs Vital Signs Date Time Temp Pulse Resp B/P (MAP) Pulse Ox O2 Delivery O2 Flow Rate FiO2 11/28/20 16:35 54 18 103/41 (61) 100 Nasal Cannula 3 11/28/20 15:55 97.0 Laboratory Data Labs 24H Laboratory Tests 2 11/28/20 11:08: Nucleated Red Blood Cells % (auto) 0.0, Prothrombin Time 13.2, Prothromb Time International Ratio 0.98, Activated Partial Thromboplast Time 30.3, Anion Gap 5L, Glomerular Filtration Rate > 60.0, Calcium Level 9.8 CBC/BMP Laboratory Tests 11/28/20 11:08 Home Medications Scheduled Amlodipine Besylate (Amlodipine Besylate) 5 Mg Tablet, 5 MG PO BID Aspirin (Aspirin EC) 81 Mg Tablet.dr, 81 MG PO DAILY Atorvastatin Calcium (Atorvastatin Calcium) 80 Mg Tablet, 80 MG PO DAILY Bimatoprost (Lumigan) 0.01% 2.5ML Drops, 1 DROP OU QHS Calcium Carbonate/Vitamin D3 (Calcium 500-Vit D3 200 Caplet) 1 Each Tablet, 1 TAB PO DAILY Cholecalciferol (Vitamin D3) (Vitamin D3) 50 Mcg Tablet, 50 MCG PO DAILY Clopidogrel Bisulfate (Clopidogrel) 75 Mg Tablet, 75 MG PO DAILY Ubidecarenone (Co Q-10) 10 Mg Capsule, 100 MG PO DAILY Vit A/Vit C/Vit E/Zinc/Copper (Preservision Areds Softgel) 1 Each Capsule, 1 CAP PO BID Vitamin B Complex (B Complex) 1 Each Tablet, 1 TAB PO DAILY Allergies Coded Allergies: fish derived (Verified Allergy, Intermediate, BONE FISH- RASH, AND VOMITING, 11/28/20) hydrochlorothiazide (Verified Allergy, Intermediate, RASH, 11/28/20) shellfish derived (Verified Allergy, Intermediate, RASH AND VOMITING, 11/28/20) A-FIB/CHADSVASC A-FIB History Current/History of A-Fib/PAF?: No Current PO Anticoag Therapy: No Age/Risk Factor Scoring CHADSVASC: CHADSVASC Response (Comments) Value Age Risk Factor Age >/= 75 years old 2 Gender Risk Factor Female 1 Hx of CHF No 0 Hx of HTN Yes 1 Hx of Stroke/TIA/or VTE Yes 2 Hx of Diabetes No 0 Hx of Vascular Disease Yes 1 Total 7 Treatment Treatment ordered: Other Other anticoagulant ordered: Mary Funez MD Nov 28, 2020 17:18
[2020-11-28] MEDS: amLODIPine 5 MG TAB PO SCH (21:00)
[2020-11-29] VITALS (15 sets, daily range): BP systolic 114–155; BP diastolic 48–63
[2020-11-29] MEDS: hydrALAZINE 20MG/ML 1ML VIAL (J0360 PER 20MG) IV PRN ×2 (05:53→06:24)
[2020-11-29 05:56] LABS: HEMOGLOBIN 8.3 g/dl (12.0-15.5); MEAN CORPUSCULAR HEMOGLOBIN 29.7 pg (27.0-33.0); MEAN CORPUSCULAR HGB CONC 31.9 g/dl (32.0-36.5); MEAN CORPUSCULAR VOLUME 93.2 fl (80.0-96.0); PLATELET COUNT, AUTOMATED 259 10^3/uL (150-450); RED BLOOD COUNT 2.79 10^6/uL (4.00-5.40); WHITE BLOOD COUNT 13.2 10^3/uL (4.0-10.0)
[2020-11-29 06:15] LABS: ALT/SGPT 16 U/L (12-78); BILIRUBIN,TOTAL 0.3 MG/DL (0.2-1.0); BLOOD UREA NITROGEN 16 MG/DL (7-18); CALCIUM LEVEL 7.8 MG/DL (8.8-10.2); CARBON DIOXIDE LEVEL 25 MEQ/L (21-32); CHLORIDE LEVEL 107 MEQ/L (98-107); CREATININE FOR GFR 0.74 MG/DL (0.55-1.30); GLOMERULAR FILTRATION RATE > 60.0 (>32); GLUCOSE, FASTING 118 MG/DL (70-100); POTASSIUM SERUM 4.1 MEQ/L (3.5-5.1); SODIUM LEVEL 141 MEQ/L (136-145); TOTAL PROTEIN 6.2 GM/DL (6.4-8.2)
[2020-11-29] MEDS: ASPIRIN 81 MG ENTERIC TAB PO SCH (08:09)
[2020-11-29] MEDS: amLODIPine 5 MG TAB PO SCH ×2 (08:09→20:30)
[2020-11-29] MEDS: CLOPIDOGREL 75 MG TAB PO SCH (08:09)
--- NOTE | 2020-11-29 08:57 | IPNPDOC ---
Date Seen The patient was seen on 11/29/20. Progress Note Patient seen and examined postoperative day one status post left carotid endarterectomy. She is doing well. She is in good spirits. Neuro exam is intact. She has no tongue deviation, speech is clear, alert and oriented 3, vision and hearing grossly intact, moves upper and lower extremities equally. No deficits noted. Her left neck incision is clean dry and intact. The drain was removed. She did have about 115 mL output postop with some hypertensive episodes, but when she went to the ICU and blood pressure was better controlled, her appetite was only 35 mL. This is minimal. Her neck is soft and no significant swelling is noted. She tolerated the drain removal well. Per the nurse, her blood pressure has remained less than 140 mmHg overnight, but they just moved her around and sat her up and her pressure was a little higher when I saw her this morning. Artline is a good waveform. The cost pressure is about 40 mmHg less than the arterial line, so we are using the arterial line for monitoring. He she just received her morning Norvasc, so if this brings down her blood pressure, I don't think we need to treat with IV medication but otherwise we should leave the Artline and a sure we treat to keep the blood pressure less than 140 mmHg to minimize the risk of bleeding in the left neck. If the blood pressure is stable, I told the nurse that is okay to remove the arterial line and get her up and walk her around. The patient and I discussed in clinic that she would be discharged postop day 1 and she and her family needed to make arrangements if she wanted to have someone stay with her postop. Today she tells me that her family is going snowmobiling, and they are not going to be available tonight for her if she needs it. I discussed with her that maybe she could ask them to postpone their trip a day. If she goes home tonight, it would be nice if her family was available to help her. The patient's hemoglobin went from 12 preop to 8.3 postop. I'm not sure why, since she had minimal intraoperative blood loss and 145 mL total ERIKA output, which is serosanguineous. This is less than 1 unit of blood, for drop of hemoglobin of 4. Some of it is likely delusional, but I'm still unclear about the etiology of her postop anemia. She is asymptomatic, with heart rate 75 and blood pressure 160/80. We will recheck a hemoglobin this afternoon prior to discharge. The patient's that overnight she felt a little rattle in her chest. She said she had to wake up and take some deep breaths. I explained to her that frequently after surgery patient's care a little bit of atelectasis and also she had a lot of drainage and secretions after surgery which she could still be clearing. We will get her an incentive spirometer to help with deep breathing. If she is able to ambulate, doing well with her deep breathing, no change in hemoglobin, and still hemodynamically stable, likely she'll be ready for discharge this afternoon. We appreciate the opportunity to participate in the care of this patient. VS, I&O, 24H, Marjan Vital Signs/I&O Vital Signs Date Time Temp Pulse Resp B/P (MAP) Pulse Ox O2 Delivery O2 Flow Rate FiO2 11/29/20 08:09 74 148/55 11/29/20 06:00 16 97 Room Air 11/29/20 05:00 1.0 11/29/20 04:00 98.9 I&O- Last 24 Hours up to 6 AM 11/29/20 06:00 Intake Total 1645 ml Output Total 555 ml Balance 1090 ml Laboratory Data 24H LABS Laboratory Tests 2 11/28/20 11:08: Nucleated Red Blood Cells % (auto) 0.0, Prothrombin Time 13.2, Prothromb Time International Ratio 0.98, Activated Partial Thromboplast Time 30.3, Anion Gap 5L, Glomerular Filtration Rate > 60.0, Calcium Level 9.8 11/29/20 05:40: Nucleated Red Blood Cells % (auto) 0.0, Anion Gap 9, Glomerular Filtration Rate > 60.0, Calcium Level 7.8#L, Total Bilirubin 0.3, Aspartate Amino Transf (AST/SGOT) 20, Alanine Aminotransferase (ALT/SGPT) 16, Alkaline Phosphatase 60, Total Protein 6.2L, Albumin 3.0L, Albumin/Globulin Ratio 0.9L CBC/BMP Laboratory Tests 11/28/20 11:08 11/29/20 05:40 YANETH BROWN MD Nov 29, 2020 08:57
[2020-11-29] MEDS: CEPACOL LOZENGE PO PRN ×2 (13:04→20:37)
--- NOTE | 2020-11-29 14:45 | IPNPDOC ---
Date Seen The patient was seen on 11/29/20. Progress Note SUBJECTIVE: Arterial line, left side neck ERIKA removed this AM. 35 mL blood loss overnight but H/H decreased, minimal blood loss including that lost during surgery. Discussed with Dr. Dickson. PT/OT ordered, as patient states she feels weak. Med/surg tele. Denies chest pain, n/v/d, fevers, chills. OBJECTIVE: PHYSICAL EXAMINATION: VS: Please see below CONSTITUTIONAL: No acute distress, resting comfortably, AAO x 3 EYES: PERRLA, EOM intact HENT, MOUTH: Normocephalic, atraumatic, moist mucous membranes NECK: SUPPLE, no JVD, no lymphadenopathy, no carotid bruit. Clean neck incisions, no erythema or tenderness CV: Regular rate and rhythm, S1S2 normal, no murmurs/rubs/gallops RESPIRATORY: Clear to auscultation bilaterally, no rales/rhonchi/wheezes GI: BS positive in 4 quadrants, soft, nontender, nondistended, no rebound or guarding, no organomegaly : Deferred MUSCULOSKELETAL: Normal ROM. No cyanosis, clubbing, swelling, joint deformity, extremity edema INTEGUMENTARY: Intact, no rashes, no lesions, no erythema NEUROLOGIC: Cranial Nerves II-XII are intact, no focal deficits PSYCHIATRIC: Mood and affect are normal CURRENT MEDICATIONS: Please see below LABORATORY DATA: Please see below IMAGING: Carotid US 10/16/20: Bulky calcified plaques in the left carotid bulb extending to the proximal left ICA resulting in more than 70% (but less than near occlusion) stenosis. ASSESSMENT: 80 y/o F with PMH Of HTN, HLD, OA, left carotid stenosis, recent right caudate nucleus CVA who was was had elective left side carotid endarterectomy performed on 11/28/[address] Dickson, admitted to ICU for close monitoring post-operatively with vascular surgery consulted to follow. PLAN: #Left side carotid stenosis s/p left carotid endarterectomy POD 1 -Minimal blood loss post-surgery -ERIKA drain removed this AM -Close monitoring of BP -C/w ASA, Plavix, statin -Vascular surgery consulted, Dr. Dickson #CVA of right caudate nucleus, acute -Resolved left upper ext numbness, weakness since discharge from hospital in 10/2020 -Recent lipid panel showed elevated cholesterol only -C/w ASA, Plavix, statin as discussed above #Weakness post-op, expected -PT: suggesting another day of working with therapy, unsteady on feet -C/w PT/OT while here, goal is home #Anemia, acute. Possibly dilutional component, as she has not had more than 300 mL blood loss with surgery -H/H 8.3, weak but otherwise asymptomatic -Stopped IVFs -F/u repeat CBC at 3 PM today -Goal to transfuse is likely < 8 or worsening symptoms -Type and screen done -Daily CBC #HTN -Resumed home amlodipine PO BID -Monitor closely #HLD -C/w statin #DVT px -teds, SCDs. DISPOSITION: Med/surg tele. Vascular surgery following. Plan is home at discharge when medically improved. VS, I&O, 24H, Fishbone Vital Signs/I&O Vital Signs Date Time Temp Pulse Resp B/P (MAP) Pulse Ox O2 Delivery O2 Flow Rate FiO2 11/29/20 13:01 97.3 84 20 116/55 95 Room Air Arterial Line 11/29/20 05:00 1.0 I&O- Last 24 Hours up to 6 AM 11/29/20 06:00 Intake Total 1645 ml Output Total 555 ml Balance 1090 ml Laboratory Data 24H LABS Laboratory Tests 2 11/29/20 05:40: Nucleated Red Blood Cells % (auto) 0.0, Anion Gap 9, Glomerular Filtration Rate > 60.0, Calcium Level 7.8#L, Total Bilirubin 0.3, Aspartate Amino Transf (AST/SGOT) 20, Alanine Aminotransferase (ALT/SGPT) 16, Alkaline Phosphatase 60, Total Protein 6.2L, Albumin 3.0L, Albumin/Globulin Ratio 0.9L CBC/BMP Laboratory Tests 11/29/20 05:40 Current Medications Current Medications Medications (Trade) Dose Ordered Sig/Mack Route PRN Reason Start Time Stop Time Status Last Admin Dose Admin Amlodipine Besylate (Norvasc) 5 mg BID PO 11/28/20 21:00 11/29/20 08:09 Artificial Tears (Akwa Tears) 1 drop QHS PRN OU DRY EYES 11/28/20 16:15 Aspirin (Ecotrin) 81 mg DAILY PO 11/29/20 09:00 11/29/20 08:09 Atorvastatin Calcium (Lipitor) 80 mg QHS PO 11/29/20 21:00 Cetylpyridinium Chloride (Cepacol) 1 donnie Q4HP PRN PO SORE THROAT 11/29/20 10:45 11/29/20 13:04 Clopidogrel Bisulfate (PLAVix) 75 mg DAILY PO 11/29/20 09:00 11/29/20 08:09 Fentanyl Citrate (Sublimaze) 25 mcg Q5MP PRN IV PAIN LEVEL 5-10 11/28/20 16:30 Hydralazine HCl (Apresoline) 10 mg Q15MP PRN IV hypertension 11/28/20 16:00 11/29/20 10:21 DC 11/29/20 06:24 Labetalol HCl (Normodyne, Trandate) 5 mg ASDIRECTED PRN IV Keep SBP<140; DBP<80 11/28/20 16:30 Labetalol HCl (Normodyne, Trandate) 10 mg Q15MP PRN IV hypertension 11/28/20 16:00 11/29/20 10:21 DC Lactated Ringer's 1,000 ml @ 100 mls/hr Q10H IV 11/28/20 16:30 11/28/20 17:30 DC Meperidine HCl (Demerol) 12.5 mg Q5MP PRN IV SHIVERING 11/28/20 16:30 11/28/20 17:30 DC Metoclopramide HCl (REGLAN INJection) 10 mg Q6HP PRN IV NAUSEA OR VOMITING 11/28/20 16:30 11/28/20 17:30 DC Ondansetron HCl (ZOFRAN INJection) 4 mg Q4HP PRN IV NAUSEA OR VOMITING 11/28/20 16:30 11/28/20 17:30 DC Ondansetron HCl (ZOFRAN INJection) 4 mg Q6HP PRN IV NAUSEA OR VOMITING 11/28/20 16:00 Oxycodone HCl (Roxicodone, Oxyir) 5 mg ASDIRECTED PRN PO PAIN LEVEL 1-4 11/28/20 16:30 11/28/20 17:30 DC Oxycodone/ Acetaminophen (Percocet 5mg/ 325mg Tablet) 1 tab Q4HP PRN PO MODERATE PAIN (PS 5-7) 11/28/20 16:00 Oxycodone/ Acetaminophen (Percocet 5mg/ 325mg Tablet) 2 tab Q4HP PRN PO SEVERE PAIN (PS 8-10) 11/28/20 16:00 Phenol (Chloraseptic [place]) 1 spray Q2HP PRN MT SORE THROAT 11/28/20 16:00 Allergies Coded Allergies: fish derived (Verified Allergy, Intermediate, BONE FISH- RASH, AND VOMITING, 11/28/20) hydrochlorothiazide (Verified Allergy, Intermediate, RASH, 11/28/20) shellfish derived (Verified Allergy, Intermediate, RASH AND VOMITING, 11/28/20) Mary Patricio MD Nov 29, 2020 14:44
[2020-11-29 15:33] LABS: HEMATOCRIT 29.1 % (36.0-47.0); HEMOGLOBIN 9.3 g/dl (12.0-15.5); MEAN CORPUSCULAR HEMOGLOBIN 30.2 pg (27.0-33.0); MEAN CORPUSCULAR VOLUME 94.5 fl (80.0-96.0); PLATELET COUNT, AUTOMATED 294 10^3/uL (150-450); RED BLOOD COUNT 3.08 10^6/uL (4.00-5.40)
[2020-11-29] MEDS ORDERED: ATORVASTATIN 20 MG TAB PO SCH (21:00)
[2020-11-30 06:00] VITALS: BP 135/65
[2020-11-30 06:18] LABS: HEMOGLOBIN 9.3 g/dl (12.0-15.5); MEAN CORPUSCULAR HEMOGLOBIN 30.1 pg (27.0-33.0); MEAN CORPUSCULAR HGB CONC 32.1 g/dl (32.0-36.5); MEAN CORPUSCULAR VOLUME 93.9 fl (80.0-96.0); PLATELET COUNT, AUTOMATED 262 10^3/uL (150-450); RED BLOOD COUNT 3.09 10^6/uL (4.00-5.40); WHITE BLOOD COUNT 11.9 10^3/uL (4.0-10.0)
[2020-11-30 06:51] LABS: ALBUMIN 3.3 GM/DL (3.2-5.2); ALT/SGPT 14 U/L (12-78); BILIRUBIN,TOTAL 0.4 MG/DL (0.2-1.0); BLOOD UREA NITROGEN 15 MG/DL (7-18); CALCIUM LEVEL 8.5 MG/DL (8.8-10.2); CARBON DIOXIDE LEVEL 27 MEQ/L (21-32); CHLORIDE LEVEL 106 MEQ/L (98-107); CREATININE FOR GFR 0.71 MG/DL (0.55-1.30); GLOMERULAR FILTRATION RATE > 60.0 (>32); GLUCOSE, FASTING 104 MG/DL (70-100); SODIUM LEVEL 142 MEQ/L (136-145); TOTAL PROTEIN 6.3 GM/DL (6.4-8.2)
--- NOTE | 2020-11-30 08:42 | IPNPDOC ---
Date Seen The patient was seen on 11/30/20. Progress Note Patient seen and examined postoperative day two status post left carotid endarterectomy. She is doing well. She stayed overnight because her family went on a snowmobiling trip yesterday and were not available to help her at home. Neuro exam is intact. She has no tongue deviation, speech is clear, alert and oriented 3, vision and hearing grossly intact, moves upper and lower extremities equally. No deficits noted. Her left neck incision is clean dry and intact. The drain was removed yesterday. She did have about 115 mL output postop with some hypertensive episodes, but when she went to the ICU and blood pressure was better controlled, her output from the ERIKA was only 35 mL overnight. No d rainage after removal, but there minimal serosanguineous shadow on the Steri- Strips. Her neck is soft and no significant swelling is noted. Blood pressure stable. The patient's hemoglobin went from 12 preop to 8.3 postop. I'm not sure why, since she had minimal intraoperative blood loss and 145 mL total ERIKA output, which is serosanguineous. This is less than 1 unit of blood, for drop of hemoglobin of 4. Some of it is likely dilutional, but I'm still unclear about the etiology of her postop anemia. Recheck later in the afternoon revealed a hemoglobin of 9.3, and it is stable this morning. She is asymptomatic, with normal heart rate and blood pressure. The patient said that the first night she felt a little rattle in her chest. She said she had to wake up and take some deep breaths. I explained to her that frequently after surgery patient's can have a little bit of atelectasis. She also she had a lot of nasal drainage and secretions after surgery, which she could still be clearing. We instructed her on how to use and incentive spirometer to help with deep breathing yesterday and again this morning. She is able to inspire 1-1.2 L at this point with her incentive spirometer. I told her to work up to 1.5 L in the next few days, and then eventually up to 2 L. She says she didn't have any difficulty overnight with feeling short of breath or feeling like she had a lot of drainage. This should continue to improve. Vascular discharge instructions: Follow-up in 1 week to check incision. Light activity as tolerated. No lifting greater than 5 pounds, no strenuous exercise for 1 week. Okay for ice to left neck for swelling and comfort. Okay to shower, pat Steri-Strips dry with clean towel after showering. Try to leave Steri-Strips intact for 7 days to help incision to heal. We appreciate the opportunity to participate in the care of this patient. VS, I&O, 24H, Fishbone Vital Signs/I&O Vital Signs Date Time Temp Pulse Resp B/P (MAP) Pulse Ox O2 Delivery O2 Flow Rate FiO2 11/30/20 06:00 97.2 76 17 135/65 (88) 96 Room Air 11/29/20 05:00 1.0 I&O- Last 24 Hours up to 6 AM 11/30/20 05:59 Intake Total 960 ml Output Total 505 ml Balance 455 ml Laboratory Data 24H LABS Laboratory Tests 2 11/29/20 14:53: Nucleated Red Blood Cells % (auto) 0.0 11/30/20 05:57: Nucleated Red Blood Cells % (auto) 0.0, Anion Gap 9, Glomerular Filtration Rate > 60.0, Calcium Level 8.5L, Total Bilirubin 0.4, Aspartate Amino Transf (AST/SGOT) 23, Alanine Aminotransferase (ALT/SGPT) 14, Alkaline Phosphatase 70, Total Protein 6.3L, Albumin 3.3, Albumin/Globulin Ratio 1.1L CBC/BMP Laboratory Tests 11/29/20 14:53 11/30/20 05:57 YANETH BROWN MD Nov 30, 2020 08:42
[2020-11-30] MEDS: CLOPIDOGREL 75 MG TAB PO SCH (08:55)
[2020-11-30] MEDS: ASPIRIN 81 MG ENTERIC TAB PO SCH (08:55)
[2020-11-30 08:56] VITALS: BP 139/74
[2020-11-30] MEDS ORDERED: TRAM50TA2 PO (08:56)
[2020-11-30] MEDS: amLODIPine 5 MG TAB PO SCH (08:56)
--- NOTE | 2020-11-30 16:41 | DS.PDOC ---
Discharge Summary General Date of Admission Nov 28, 2020 at 10:41 Date of Discharge 11/30/20 Attending Physician: Mary Patricio MD Discharge Summary HPI: Patient is an 80 y/o F with PMH Of HTN, HLD, OA, left carotid stenosis, recent right caudate nucleus CVA who was was had elective left side carotid endarterectomy performed on 11/28/[address] Dickson. Ms. Banerjee had a recen t right caudate nucleus CVA and during that admission, had carotid US showing >70% stenosis of left carotid artery. She was set up to follow up with vascular surgery, Dr. Dickson, as o/p after discharge. Intraoperatively there were no complications. Minimal blood loss of 75 mL was recorded. Post-operatively she had two isolated episodes of hypertension for which she was given hydralazine and labetalol IV. Goal blood pressure post-op is 90-140 mmHg systolic with HR 60-80 bpm. Medicine team was consulted to admit patient as primary post- operatively. Post-op patient only complained of some mild left neck pressure. She denied chest pain, shortness of breath, n/v, blurry vision, headache, arm numbness/tingling, LH, dizziness, increased weakness. BP appeared within goal on my evaluation. ERIKA drain had sanguinous blood, total of 50 mL. According to nursing she has had approx 100 mL in addition to 75 mL of blood loss thus far. Per vascular request, ASA and statin, along with other home meds were resumed. Patient was admitted to ICU for close monitoring post-operatively with vascular surgery consulted to follow. HOSPITAL COURSE: H/H was watched closely and slowly improved after 24 hours and off IVFs. Patient was reassessed by PT on POD 2, much improved. She was tolerating medical therapy well. Decision was made to d/c home with close follow up with both vascular surgery and PCP. At time of discharge, patient denied chest pain, n/v/d, shortness of breath, neck pain, fevers or chills. PMH: Right caudate nucleus CVA Left carotid stenosis Hypertension Hyperlipidemia Osteoarthritis Macular degeneration of the right eye PSH: Left carotid endarterectomy 11/28/20 Left total hip arthroplasty Right total knee arthroplasty Family History: Her father at the age of 78 of prostate cancer Her mother at the age of 90 of Alzheimer's disease and osteoporosis Social History Smoker: former Smoker (quit smoking in the 1970s) Alcohol: other (she reports she drinks 2-3 beers each night) Drugs: denies (but she does have CBD oil in her coffee most every day) She lives in a separate house on her son's property ALLERGIES: Please see below. DISCHARGE MEDICATIONS: Please see below. PHYSICAL EXAMINATION: VS: Please see below CONSTITUTIONAL: No acute distress, resting comfortably, AAO x 3 EYES: PERRLA, EOM intact HENT, MOUTH: Normocephalic, atraumatic, moist mucous membranes NECK: SUPPLE, no JVD, no lymphadenopathy, no carotid bruit. Clean neck incisions, no erythema or tenderness CV: Regular rate and rhythm, S1S2 normal, no murmurs/rubs/gallops RESPIRATORY: Clear to auscultation bilaterally, no rales/rhonchi/wheezes GI: BS positive in 4 quadrants, soft, nontender, nondistended, no rebound or guarding, no organomegaly : Deferred MUSCULOSKELETAL: Normal ROM. No cyanosis, clubbing, swelling, joint deformity, extremity edema INTEGUMENTARY: Intact, no rashes, no lesions, no erythema NEUROLOGIC: Cranial Nerves II-XII are intact, no focal deficits PSYCHIATRIC: Mood and affect are normal CURRENT MEDICATIONS: Please see below LABORATORY DATA: Please see below IMAGING: Carotid US 10/16/20: Bulky calcified plaques in the left carotid bulb extending to the proximal left ICA resulting in more than 70% (but less than near occlusion) stenosis. ASSESSMENT: 80 y/o F with PMH Of HTN, HLD, OA, left carotid stenosis, recent right caudate nucleus CVA who was was had elective left side carotid endarterectomy performed on 11/28/[address] Dickson, admitted to ICU for close monitoring post-operatively with vascular surgery consulted to follow. PLAN: #Left side carotid stenosis s/p left carotid endarterectomy POD 2 -C/w ASA, Plavix, statin -Vascular surgery (Dr. Dickson) to follow up as o/p -Please refer to discharge instructions per vascular #CVA of right caudate nucleus, acute -Resolved left upper ext numbness, weakness since discharge from hospital in 10/2020 -Recent lipid panel showed elevated cholesterol only -C/w ASA, Plavix, statin #Anemia, acute. Possibly dilutional component, as she has not had more than 300 mL blood loss with surgery -H/H improved -F/u with PCP #HTN -C/w amlodipine PO BID #HLD -C/w statin DISPOSITION: D/c home with f/u with vascular surgery, PCP. TIME SPENT ON DISCHARGE: Greater than 30 minutes. Vital Signs/I&Os Vital Signs Date Time Temp Pulse Resp B/P (MAP) Pulse Ox O2 Delivery O2 Flow Rate FiO2 11/30/20 08:56 82 139/74 11/30/20 06:00 97.2 17 96 Room Air 11/29/20 05:00 1.0 I&O- Last 24 Hours up to 6 AM 11/30/20 06:00 Intake Total 960 ml Output Total 300 ml Balance 660 ml Laboratory Data Labs 24H Laboratory Tests 2 11/30/20 05:57: Nucleated Red Blood Cells % (auto) 0.0, Anion Gap 9, Glomerular Filtration Rate > 60.0, Calcium Level 8.5L, Total Bilirubin 0.4, Aspartate Amino Transf (AST/SGOT) 23, Alanine Aminotransferase (ALT/SGPT) 14, Alkaline Phosphatase 70, Total Protein 6.3L, Albumin 3.3, Albumin/Globulin Ratio 1.1L CBC/BMP Laboratory Tests 11/30/20 05:57 Discharge Medications Scheduled Amlodipine Besylate (Amlodipine Besylate) 5 Mg Tablet, 5 MG PO BID, (Reported) Aspirin (Aspirin EC) 81 Mg Tablet.dr, 81 MG PO DAILY Atorvastatin Calcium (Atorvastatin Calcium) 80 Mg Tablet, 80 MG PO DAILY, (Reported) Bimatoprost (Lumigan) 0.01% 2.5ML Drops, 1 DROP OU QHS, (Reported) Calcium Carbonate/Vitamin D3 (Calcium 500-Vit D3 200 Caplet) 1 Each Tablet, 1 TAB PO DAILY, (Reported) Cholecalciferol (Vitamin D3) (Vitamin D3) 50 Mcg Tablet, 50 MCG PO DAILY, (Reported) Clopidogrel Bisulfate (Clopidogrel) 75 Mg Tablet, 75 MG PO DAILY Ubidecarenone (Co Q-10) 10 Mg Capsule, 100 MG PO DAILY, (Reported) Vit A/Vit C/Vit E/Zinc/Copper (Preservision Areds Softgel) 1 Each Capsule, 1 CAP PO BID, (Reported) Vitamin B Complex (B Complex) 1 Each Tablet, 1 TAB PO DAILY, (Reported) Scheduled PRN Tramadol HCl (Tramadol HCl) 50 Mg Tablet, 50 MG PO Q8HP PRN for pain Allergies Coded Allergies: fish derived (Verified Allergy, Intermediate, BONE FISH- RASH, AND VOMITING, 11/28/20) hydrochlorothiazide (Verified Allergy, Intermediate, RASH, 11/28/20) shellfish derived (Verified Allergy, Intermediate, RASH AND VOMITING, 11/28/20) Mary Patricio MD Nov 30, 2020 16:41
== END 2020-11-30 13:22 | disposition home or self-care (01) | DRG 39 ==
LOC: M OR 10:41 → M PCU 17:45 → M MSPAV 11-29 14:02
PROVIDERS: ADMIT Surgery Vascular Surgery; ATTEND Internal Medicine
PROC: 03CL0ZZ Extirpation of Matter from Left Internal Carotid Artery, Open Approach (ICD-10-PCS; 2020-11-28)
PROC: 03CN0ZZ Extirpation of Matter from Left External Carotid Artery, Open Approach (ICD-10-PCS; 2020-11-28)
PROC: 03UL0JZ Supplement Left Internal Carotid Artery with Synthetic Substitute, Open Approach (ICD-10-PCS; 2020-11-28)
PROC: 03CJ0ZZ Extirpation of Matter from Left Common Carotid Artery, Open Approach (ICD-10-PCS; principal; 2020-11-28 12:00)
DX: I65.22 Occlusion and stenosis of left carotid artery (principal); I10 Essential (primary) hypertension; E78.5 Hyperlipidemia, unspecified; H35.30 Unspecified macular degeneration; D64.9 Anemia, unspecified; Z96.642 Presence of left artificial hip joint; Z96.651 Presence of right artificial knee joint; Z86.73 Personal history of transient ischemic attack (TIA), and cerebral infarction without residual deficits; Z87.891 Personal history of nicotine dependence; Z79.82 Long term (current) use of aspirin; Z79.02 Long term (current) use of antithrombotics/antiplatelets; Z79.899 Other long term (current) drug therapy; Z88.8 Allergy status to other drugs, medicaments and biological substances; Z91.013 Allergy to seafood

== ENCOUNTER → 2020-12-20 | Outpatient (REF) | payer MEDICARE ==
[~2020-12-20] MED LIST changes: +CO Q10CA PO; -LR 1,000 ML IV ONE; +PRESCAP PO; +TRAM50TA2 PO; -ceFAZolin SOD 2 GM in IV 1 EA IV ONE
[2020-12-20 15:15] LABS: BASO # 0.1 10^3/uL (0.0-0.2); BASO % 0.7 % (0.0-1.0); EOS # 0.5 10^3/uL (0.0-0.5); EOS % 7.3 % (0.0-3.0); HEMATOCRIT 34.8 % (36.0-47.0); HEMOGLOBIN 10.9 g/dl (12.0-15.5); LYMPH # 1.9 10^3/uL (1.5-5.0); LYMPH % 27.7 % (24.0-44.0); MEAN CORPUSCULAR HEMOGLOBIN 30.3 pg (27.0-33.0); MEAN CORPUSCULAR HGB CONC 31.3 g/dl (32.0-36.5); MEAN CORPUSCULAR VOLUME 96.7 fl (80.0-96.0); MONO # 0.4 10^3/uL (0.0-0.8); MONO % 6.4 % (2.0-8.0); NEUTROPHILS # 3.8 10^3/uL (1.5-8.5); NEUTROPHILS % 57.6 % (36.0-66.0); PLATELET COUNT, AUTOMATED 417 10^3/uL (150-450); WHITE BLOOD COUNT 6.7 10^3/uL (4.0-10.0)
[2020-12-20 15:48] LABS: ALBUMIN 4.1 GM/DL (3.2-5.2); ALT/SGPT 22 U/L (12-78); BILIRUBIN,TOTAL 0.3 MG/DL (0.2-1.0); BLOOD UREA NITROGEN 18 MG/DL (7-18); CALCIUM LEVEL 9.4 MG/DL (8.8-10.2); CARBON DIOXIDE LEVEL 30 MEQ/L (21-32); CHLORIDE LEVEL 103 MEQ/L (98-107); CHOLESTEROL LEVEL 163 MG/DL (<200); CHOLESTEROL RISK RATIO 2.762 (<5); CREATININE FOR GFR 0.86 MG/DL (0.55-1.30); GLOMERULAR FILTRATION RATE > 60.0 (>32); GLUCOSE, FASTING 99 MG/DL (70-100); HDL CHOLESTEROL 59 MG/DL (>40); LDL CHOLESTEROL 82 MG/DL (<100); NON-HDL-C 104 MG/DL; POTASSIUM SERUM 4.9 MEQ/L (3.5-5.1); SODIUM LEVEL 140 MEQ/L (136-145); TOTAL PROTEIN 7.4 GM/DL (6.4-8.2); TRIGLYCERIDES LEVEL 111 MG/DL (<150)
== END ==
LOC: M SHH 15:00
PROVIDERS: ATTEND Physician Assistant
DX: I63.9 Cerebral infarction, unspecified (principal)

== ENCOUNTER → 2021-01-07 | Outpatient (CLI) | payer MEDICARE ==
[~2021-01-07] MED LIST changes: +ASPI-569 PO; -ASPI81TAEC PO
--- NOTE | 2021-01-07 15:25 | REP ---
INDICATION: OCCLUSION AND STENOSIS OF LEFT CAROTID ART COMPARISON: 10/16/2020 TECHNIQUE: Bowman scale and color Doppler evaluation using linear high frequency transducer Findings: FINDINGS: Two-dimensional bowman scale and color images demonstrate mild atheromatous plaquing to the right carotid arterial system with normal laminar flow and no evidence for stenosis or occlusion. Left carotid arterial system demonstrates mild intimal thickening with normal laminar flow and no evidence for stenosis or occlusion. Doppler interrogation demonstrates bilateral arterial wave patterns with moderate spectral broadening. Normal flow direction to the bilateral vertebral arteries noted.. ICA peak systolic velocity: Right 64.8 cm/s; Left 91.9 cm/s ICA diastolic velocity: Right 21.3 cm/s; Left 29.7 cm/s ECA peak systolic velocity: Right 101.8 cm/s; Left 105.8 cm/s CCA peak systolic velocity: Right 101.8 cm/s; Left 69.9 cm/s ICA/CCA ratio: Right 0.63 cm/s; Left 1.31 cm/s IMPRESSION: No hemodynamically significant areas of narrowing or stenosis appreciated. Based on set standards narrowing falls within the less than 50% range bilaterally. <Electronically signed by Ra Powers > 01/07/21 1526
== END ==
LOC: M RAD 14:12
PROVIDERS: ATTEND Physician Assistant
DX: I65.22 Occlusion and stenosis of left carotid artery (principal)

== ENCOUNTER → 2021-04-23 | Outpatient (CLI) | payer OTHER ==
[2021-04-23 13:23] LABS: BASO # 0.1 10^3/uL (0.0-0.2); BASO % 0.9 % (0.0-1.0); EOS # 0.4 10^3/uL (0.0-0.5); EOS % 4.8 % (0.0-3.0); HEMATOCRIT 37.4 % (36.0-47.0); HEMOGLOBIN 11.7 g/dl (12.0-15.5); LYMPH % 24.9 % (24.0-44.0); MEAN CORPUSCULAR HEMOGLOBIN 29.1 pg (27.0-33.0); MEAN CORPUSCULAR HGB CONC 31.3 g/dl (32.0-36.5); MONO # 0.6 10^3/uL (0.0-0.8); NEUTROPHILS # 4.9 10^3/uL (1.5-8.5); PLATELET COUNT, AUTOMATED 308 10^3/uL (150-450); RED BLOOD COUNT 4.02 10^6/uL (4.00-5.40); WHITE BLOOD COUNT 7.9 10^3/uL (4.0-10.0)
[2021-04-23 13:59] LABS: ALT/SGPT 19 U/L (12-78); BILIRUBIN,TOTAL 0.5 MG/DL (0.2-1.0); BLOOD UREA NITROGEN 16 MG/DL (7-18); CALCIUM LEVEL 9.5 MG/DL (8.8-10.2); CARBON DIOXIDE LEVEL 32 MEQ/L (21-32); CHLORIDE LEVEL 105 MEQ/L (98-107); CHOLESTEROL LEVEL 155 MG/DL (<200); CHOLESTEROL RISK RATIO 2.767 (<5); CREATININE FOR GFR 0.71 MG/DL (0.55-1.30); GLOMERULAR FILTRATION RATE > 60.0 (>32); GLUCOSE, FASTING 92 MG/DL (70-100); HDL CHOLESTEROL 56 MG/DL (>40); LDL CHOLESTEROL 73 MG/DL (<100); NON-HDL-C 99 MG/DL; POTASSIUM SERUM 4.2 MEQ/L (3.5-5.1); SODIUM LEVEL 140 MEQ/L (136-145); TOTAL PROTEIN 7.3 GM/DL (6.4-8.2); TRIGLYCERIDES LEVEL 130 MG/DL (<150)
== END ==
LOC: M LAB 12:21
PROVIDERS: ATTEND Family Medicine
DX: I63.232 Cerebral infarction due to unspecified occlusion or stenosis of left carotid arteries (principal); I10 Essential (primary) hypertension

== ENCOUNTER → 2021-08-30 | Outpatient (CLI) | payer OTHER ==
--- NOTE | 2021-08-30 15:02 | REP ---
INDICATION: Assess stenosis TECHNIQUE: Carotid ultrasonography was performed bilaterally FINDINGS: Right: CCA systolic: 76.9 centimeters/second CCA diastolic: 16.8 centimeters/second ICA systolic: 84.1 centimeters/second ICA diastolic: 26.0 centimeters/second ICA CCA ratio: 1.09 Left: CCA systolic: 68.9 centimeters/second CCA diastolic: 12.3 centimeters/second ICA systolic: 70.6 centimeters/second ICA diastolic: 25.1 centimeters/second ICA CCA ratio: 1.13 Vertebral artery: Right: Antegrade flow left: Antegrade flow Echogenic material seen along the carotid arterial tang some of which casts and acoustic shadow IMPRESSION: According to the SRU criteria there is less than 50% stenosis of the internal carotid artery bilaterally. This is secondary to both calcified and noncalcified atheromatous plaque formation. <Electronically signed by Cl Brooke > 08/30/21 [id number]
== END ==
LOC: M RAD 14:10
PROVIDERS: ATTEND Surgery Vascular Surgery
DX: I65.23 Occlusion and stenosis of bilateral carotid arteries (principal)

== ENCOUNTER → 2021-09-02 | Outpatient (CLI) | payer OTHER ==
[2021-09-02 18:38] LABS: BASO # 0.1 10^3/uL (0.0-0.2); BASO % 0.7 % (0.0-1.0); EOS # 0.4 10^3/uL (0.0-0.5); EOS % 4.5 % (0.0-3.0); HEMATOCRIT 37.7 % (36.0-47.0); HEMOGLOBIN 11.7 g/dl (12.0-15.5); LYMPH # 1.9 10^3/uL (1.5-5.0); LYMPH % 19.7 % (24.0-44.0); MEAN CORPUSCULAR HEMOGLOBIN 29.8 pg (27.0-33.0); MEAN CORPUSCULAR VOLUME 95.9 fl (80.0-96.0); MONO # 0.6 10^3/uL (0.0-0.8); MONO % 6.1 % (2.0-8.0); NEUTROPHILS # 6.5 10^3/uL (1.5-8.5); NEUTROPHILS % 68.6 % (36.0-66.0); PLATELET COUNT, AUTOMATED 343 10^3/uL (150-450); RED BLOOD COUNT 3.93 10^6/uL (4.00-5.40); WHITE BLOOD COUNT 9.4 10^3/uL (4.0-10.0)
[2021-09-02 19:08] LABS: ALBUMIN 3.8 GM/DL (3.2-5.2); ALT/SGPT 19 U/L (12-78); BILIRUBIN,TOTAL 0.5 MG/DL (0.2-1.0); BLOOD UREA NITROGEN 15 MG/DL (7-18); CALCIUM LEVEL 9.8 MG/DL (8.8-10.2); CARBON DIOXIDE LEVEL 30 MEQ/L (21-32); CHLORIDE LEVEL 108 MEQ/L (98-107); CHOLESTEROL LEVEL 174 MG/DL (<200); CHOLESTEROL RISK RATIO 2.806 (<5); CREATININE FOR GFR 0.74 MG/DL (0.55-1.30); GLOMERULAR FILTRATION RATE > 60.0 (>32); GLUCOSE, FASTING 88 MG/DL (70-100); HDL CHOLESTEROL 62 MG/DL (>40); IRON (FE) 86 UG/DL (50-170); LDL CHOLESTEROL 92 MG/DL (<100); NON-HDL-C 112 MG/DL; PERCENT SATURATION 31.2 % (13.2-45.0); POTASSIUM SERUM 4.4 MEQ/L (3.5-5.1); SODIUM LEVEL 142 MEQ/L (136-145); TOTAL IRON BINDING CAPACITY 276 UG/DL (250-450); TOTAL PROTEIN 7.2 GM/DL (6.4-8.2); TRIGLYCERIDES LEVEL 99 MG/DL (<150)
== END ==
LOC: M PLALAB 13:41
PROVIDERS: ATTEND Physician Assistant
DX: I63.232 Cerebral infarction due to unspecified occlusion or stenosis of left carotid arteries (principal); I10 Essential (primary) hypertension; D64.9 Anemia, unspecified

== ENCOUNTER → 2022-04-28 | Outpatient (CLI) | payer OTHER ==
[2022-04-28 13:44] LABS: BASO # 0.1 10^3/uL (0.0-0.2); BASO % 0.7 % (0.0-1.0); EOS # 0.4 10^3/uL (0.0-0.5); EOS % 4.2 % (0.0-3.0); HEMATOCRIT 39.5 % (36.0-47.0); HEMOGLOBIN 12.3 g/dl (12.0-15.5); LYMPH # 2.2 10^3/uL (1.5-5.0); LYMPH % 26.1 % (24.0-44.0); MEAN CORPUSCULAR HEMOGLOBIN 30.1 pg (27.0-33.0); MEAN CORPUSCULAR HGB CONC 31.1 g/dl (32.0-36.5); MEAN CORPUSCULAR VOLUME 96.6 fl (80.0-96.0); MONO # 0.6 10^3/uL (0.0-0.8); MONO % 7.3 % (2.0-8.0); NEUTROPHILS # 5.1 10^3/uL (1.5-8.5); NEUTROPHILS % 61.5 % (36.0-66.0); PLATELET COUNT, AUTOMATED 332 10^3/uL (150-450); RED BLOOD COUNT 4.09 10^6/uL (4.00-5.40); WHITE BLOOD COUNT 8.3 10^3/uL (4.0-10.0)
[2022-04-28 16:11] LABS: ALBUMIN 4.2 GM/DL (3.2-5.2); ALT/SGPT 18 U/L (12-78); BILIRUBIN,TOTAL 0.5 MG/DL (0.2-1.0); BLOOD UREA NITROGEN 15 MG/DL (7-18); CALCIUM LEVEL 9.4 MG/DL (8.8-10.2); CARBON DIOXIDE LEVEL 31 MEQ/L (21-32); CHLORIDE LEVEL 103 MEQ/L (98-107); CHOLESTEROL LEVEL 154 MG/DL (<200); CREATININE FOR GFR 0.74 MG/DL (0.55-1.30); FERRITIN 180 NG/ML (8-252); FREE T4 1.15 NG/DL (0.76-1.46); GLOMERULAR FILTRATION RATE > 60.0 (>32); GLUCOSE, FASTING 94 MG/DL (70-100); HDL CHOLESTEROL 70 MG/DL (>40); IRON (FE) 107 UG/DL (50-170); LDL CHOLESTEROL 66 MG/DL (<100); NON-HDL-C 84 MG/DL; PERCENT SATURATION 39.9 % (13.2-45.0); POTASSIUM SERUM 4.5 MEQ/L (3.5-5.1); SODIUM LEVEL 139 MEQ/L (136-145); TOTAL IRON BINDING CAPACITY 268 UG/DL (250-450); TOTAL PROTEIN 7.7 GM/DL (6.4-8.2); TRIGLYCERIDES LEVEL 92 MG/DL (<150)
== END ==
LOC: M PLALAB 11:25
PROVIDERS: ATTEND Family Medicine
DX: I10 Essential (primary) hypertension (principal); D64.9 Anemia, unspecified

== ENCOUNTER 2022-06-06 15:18 | Emergency (ER) | payer OTHER ==
[~2022-06-06] VITALS: Ht 149.9 cm; Wt 56.8 kg
[2022-06-06 17:05] LABS: BASO # 0.1 10^3/uL (0.0-0.2); BASO % 0.7 % (0.0-1.0); EOS # 0.2 10^3/uL (0.0-0.5); EOS % 3.4 % (0.0-3.0); HEMATOCRIT 33.3 % (36.0-47.0); HEMOGLOBIN 10.6 g/dl (12.0-15.5); LYMPH # 1.3 10^3/uL (1.5-5.0); LYMPH % 17.6 % (24.0-44.0); MEAN CORPUSCULAR HEMOGLOBIN 30.3 pg (27.0-33.0); MEAN CORPUSCULAR HGB CONC 31.8 g/dl (32.0-36.5); MEAN CORPUSCULAR VOLUME 95.1 fl (80.0-96.0); MONO # 0.5 10^3/uL (0.0-0.8); MONO % 7.4 % (2.0-8.0); NEUTROPHILS # 5.1 10^3/uL (1.5-8.5); NEUTROPHILS % 70.8 % (36.0-66.0); PLATELET COUNT, AUTOMATED 257 10^3/uL (150-450); WHITE BLOOD COUNT 7.2 10^3/uL (4.0-10.0)
[2022-06-06] MEDS ORDERED: GI COCKTAIL 50ML BTL(HYOSCYAMINE/MAALOX/LIDOCAINE VISCOUS)(1:3:1) PO ONE (17:05)
[2022-06-06 17:38] LABS: CK-MB VALUE MASS 1.2 NG/ML (<3.6); MB/CK RELATIVE INDEX 3.24 (< OR =4)
[2022-06-06 17:42] LABS: CALCIUM LEVEL 9.1 MG/DL (8.8-10.2); CREATININE FOR GFR 1.04 MG/DL (0.55-1.30); FREE T4 0.96 NG/DL (0.76-1.46); GLOMERULAR FILTRATION RATE 53.9 (>32); MAGNESIUM LEVEL 2.4 MG/DL (1.8-2.4); POTASSIUM SERUM 3.8 MEQ/L (3.5-5.1); THYROID STIMULATING HORMONE 2.47 uIU/ML (0.358-3.740)
[2022-06-06] MEDS ORDERED: NS 500 ML IV ONE (18:50)
[2022-06-06 19:00] LABS: CK-MB VALUE MASS 1.3 NG/ML (<3.6); MB/CK RELATIVE INDEX 3.71 (< OR =4)
[2022-06-06 19:31] VITALS: BP 136/66
[2022-06-06] MEDS ORDERED: PEPC1TAB5 PO (20:04)
== END 2022-06-06 20:00 | disposition home or self-care (01) ==
LOC: M ED 15:18
DX: R55 Syncope and collapse (principal); T67.5XXA Heat exhaustion, unspecified, initial encounter; R94.31 Abnormal electrocardiogram [ECG] [EKG]; Z86.73 Personal history of transient ischemic attack (TIA), and cerebral infarction without residual deficits; E78.5 Hyperlipidemia, unspecified; I10 Essential (primary) hypertension; F33.9 Major depressive disorder, recurrent, unspecified; Z88.8 Allergy status to other drugs, medicaments and biological substances; Z91.013 Allergy to seafood; Z79.82 Long term (current) use of aspirin; Z79.899 Other long term (current) drug therapy